=== PATIENT | female | born 1965 | race African-American/Black ===

== ENCOUNTER 2016-03-15 03:41 | Observation (INO) | payer SELFPAY ==
[2016-03-15] VITALS (14 sets, daily range): BP systolic 129–213; BP diastolic 72–110; PULSE 62–94; RESP 16–21; TEMP 96.7–98.7; O2SAT 98–100
[~2016-03-15] VITALS: Ht 162.6 cm; Wt 85.0 kg
[~2016-03-15 03:41] MED LIST: METO10TA PO; NAPR500 PO; ZOFR4TAB3 SL
[2016-03-15] MEDS: NITROGLYCERIN 0.4 MG SL 25 TABS/BTL SL SCH ×3 (04:13→04:29)
[2016-03-15] MEDS ORDERED: ASPIRIN 81 MG CHEW TAB PO ONE (04:15)
[2016-03-15] MEDS ORDERED: NITROGLYCERIN 2% OINT 1 GM PACKET TOP ONE (04:15)
[2016-03-15] MEDS ORDERED: SODIUM CHLORIDE 0.9% FLUSH 5 ML FLUSH IVF PRN ×2 (04:15→06:00)
[2016-03-15 04:24] LABS: AUTOMATED NEUTROPHIL # 3.7 TH/MM3 (1.8-7.7); BASOPHIL # 0.1 TH/MM3 (0-0.2); BASOPHIL % 1.1 % (0.0-2.0); EOSINOPHIL # 0.1 TH/MM3 (0-0.4); EOSINOPHIL % 1.1 % (0.0-4.0); HEMATOCRIT 31.1 % (35.0-46.0); LYMPH % 24.1 % (9.0-44.0); LYMPHOCYTE # 1.4 TH/MM3 (1.0-4.8); MEAN CELL VOLUME 58.9 FL (80.0-100.0); MEAN CORPUSCULAR HEMOGLOBIN 18.1 PG (27.0-34.0); MEAN CORPUSCULAR HGB CONC 30.7 % (32.0-36.0); MONO % 10.2 % (0.0-8.0); NEUT % 63.5 % (16.0-70.0); PLATELET COUNT 272 TH/MM3 (150-450); RED BLOOD COUNT 5.27 MIL/MM3 (4.00-5.30); RED CELL DISTRIBUTION WIDTH 21.5 % (11.6-17.2); WHITE BLOOD COUNT 5.8 TH/MM3 (4.0-11.0)
[2016-03-15 04:25] LABS: HEMO FLAGS AUTO DIFF
[2016-03-15 04:41] LABS: APTT (PATIENT) 24.3 SEC (24.3-30.1); PROTHROMBIN TIME - PATIENT 10.6 SEC (9.8-11.6)
--- NOTE | 2016-03-15 04:45 | RADRPT ---
EXAM DATE/TIME: 03/15/2016 04:04 [facility] COMPARISON: CHEST SINGLE AP, May 20, 2015, 19:00. INDICATIONS : Pt having chest pain. MEDICAL HISTORY : Hypertension. SURGICAL HISTORY : section. Tubal ligation. ENCOUNTER: Initial ACUITY: 1 day PAIN SCORE: 7/10 LOCATION: Bilateral chest FINDINGS: A single view of the chest demonstrates the lungs to be symmetrically aerated without evidence of mas s, infiltrate or effusion. Mild cardiomegaly. The cardiomediastinal contours are unremarkable. Mcintosh us structures are intact. CONCLUSION: No acute cardiopulmonary disease. Mild cardiomegaly. Myke Cox MD on March 15, 2016 at 4:43 Board Certified Radiologist. This report was verified electronically.
[2016-03-15 04:54] LABS: ACANTHOCYTES OCC (NORMAL); ANION GAP 9 MEQ/L (5-15); AST (GOT) 11 U/L (15-37); BICARBONATE 25.4 MEQ/L (21.0-32.0); BLOOD UREA NITROGEN 19 MG/DL (7-18); CHLORIDE 107 MEQ/L (98-107); GLOMERULAR FILTRATION RATE 101 ML/MIN (>89); OVALOCYTES 1+ (NORMAL); PLATELET ESTIMATE SMEAR NORMAL (NORMAL); PLATELET MORPHOLOGY NORMAL (NORMAL); POTASSIUM 4.3 MEQ/L (3.5-5.1); SODIUM (NA) 141 MEQ/L (136-145)
[2016-03-15 04:58] LABS: SCAN/DIFF AUTO DIFF CONFIRMED
[2016-03-15 04:59] LABS: ALKALINE PHOSPHATASE 90 U/L (45-117); ALT (GPT) 15 U/L (10-53); CREATINE KINASE 117 U/L (26-192); TOTAL BILIRUBIN ADULT 0.3 MG/DL (0.2-1.0)
[2016-03-15 05:11] LABS: CKMB 1.6 NG/ML (0.5-3.6)
--- NOTE | 2016-03-15 05:52 | RADRPT ---
EXAM DATE/TIME: 03/15/2016 04:55 [facility] COMPARISON: No previous studies available for comparison. INDICATIONS : Pt with pain and swelling to left hand. No known injury. MEDICAL HISTORY : None. SURGICAL HISTORY : None. ENCOUNTER: Initial ACUITY: 1 day PAIN SCORE: 6/10 LOCATION: Left hand FINDINGS: Three view examination of the left hand demonstrates soft tissue swelling without dislocation or frac ture. The carpal bones appear intact. The interphalangeal and metacarpophalangeal joints are intac t. Bony mineralization is normal. CONCLUSION: Soft tissue swelling without fracture. Myke Cox MD on March 15, 2016 at 5:50 Board Certified Radiologist. This report was verified electronically.
--- NOTE | 2016-03-15 05:59 | PD ---
HPI Chief Complaint: Chest Pain Time Seen by Provider: 03:55 Travel History International Travel<30 days: No Contact w/Intl Traveler<30days: No Traveled to known affect area: No History of Present Illness HPI The patient is 50 year old female who presents to the [facility] emergency department with a history of chest pain that she reports began just prior to arriving in the emergency department. The patient reports that the chest pain is in the center of her chest. She reports that it is a pressure sensation. She reports it has been associated with shortness of breath, nausea, no vomiting. She denies having any radiation of the pain. She denies having any diaphoresis. The patient denies having any prior history of cardiac disease. She reports that she last had a stress test on a couple of years ago. The patient reports that she does have a history of a heart murmur and hypertension , however she has not had a primary care physician recently and has not been on blood pressure medication recently. The patient also incidentally reports that she's had a two-week history of left thumb pain, that yesterday began to spread across the dorsum of her hand mainly involving the distal metacarpal joints. The patient reports that she has some redness and swelling associated with this. She denies having any trauma to the area. She reports that she does have a history of gout, however previously that involved her foot. She denies having any open wounds to her hand. The patient on review of systems reports that she did have vomiting 2 days ago. The patient denies any recent fevers, cough, congestion, neck pain, chest pain, shortness of breath, abdominal pain, diarrhea, urinary symptoms, or neurologic symptoms. [facility] Past Medical History Narrative Medical The patient's past medical history is significant for a heart murmur, history of hypertension, history of sciatica, history of low back pain, history of gout. Hx Anticoagulant Therapy: No Heart Rhythm Problems: Yes (ENLARGED HEART,IRREGULAR) Cardiovascular Problems: Yes (HTN) Chemotherapy: No Cerebrovascular Accident: No Diabetes: No Diminished Hearing: No Hypertension: Yes Musculoskeletal: Yes (SCIATICA) Respiratory: No Immunizations Current: Yes Tetanus Vaccination: Unknown Influenza Vaccination: No ?: Not LMP: 2 days ago : 3 Para: 3 Tubal Ligation: Yes (1993) Past Surgical History Narrative Surgical The patient's past surgical history is significant for a times one, bilateral tubal ligation. Section: Yes (X 1) Hysterectomy: No Family History Family Myocardial Infarction: Yes Social History Alcohol Use: No Tobacco Use: No Substance Use: No Allergies-Medications (Allergen,Severity, Reaction): Coded Allergies: No Known Allergies (Verified , 03/15/16) Reported Meds & Prescriptions Reported Meds & Active Scripts Active No Active Prescriptions or Reported Medications Review of Systems Except as stated in HPI: all other systems reviewed are Neg General / Constitutional: No: Fever Eyes: No: Visual changes HENT: No: Headaches Cardiovascular: Positive: Chest Pain or Discomfort, Dyspnea on exertion Respiratory: Positive: Shortness of Breath, No: Cough Gastrointestinal: Positive: Nausea, Vomiting, No: Abdominal Pain Genitourinary: No: Dysuria Musculoskeletal: Positive: Arthralgias, Limited ROM, Edema, Pain Skin: No Rash Neurologic: No: Weakness Psychiatric: No: Depression Endocrine: No: Polydipsia Hematologic/Lymphatic: No: Easy Bruising Physical Exam Narrative General: The patient is a well-developed well-nourished female in no acute distress.. Head and Neck exam: Head is normocephalic atraumatic. Eyes: Pupils are equal round and reactive to light. Nose: Midline septum with pink mucous membranes Mouth: Dentition unremarkable. Moist mucus membranes. Posterior oropharynx is not erythematous. No tonsillar hypertrophy. Uvula midline. Airway patent. Neck: No palpable lymphadenopathy. No nuchal rigidity. No thyromegaly. Cardiovascular: Regular rate and rhythm without murmurs, gallops, or rubs. No pulse deficit to the extremities and simultaneous auscultation and palpation of her radial artery. Lungs: Clear to auscultation bilaterally. No wheezes, rhonchi, or rales. Abdomen: Soft, without tenderness to palpation in all 4 quadrants of the abdomen. No guarding, rebound, or rigidity. Normal bowel sounds are audible. No tenderness on palpation of McBurney's point. Extremities: No clubbing, cyanosis, or edema, except an area of interest, the left hand. The patient on examination the left hand has tenderness on palpation along the dorsum of the hand overlying the MCP joints. There is slight edema and erythema noted. There are no open wounds. The patient has intact sensation over all fingertips. The patient has less than 3 second capillary refill. The patient has no other swelling of the arm. 2+ pulses in all 4 extremities. No calf tenderness on palpation. Back: No spinous process tenderness to palpation. No costovertebral angle tenderness to palpation. Neurologic Exam: Grossly nonfocal. Skin Exam: No rash noted. Intact skin that is warm and dry. Data Data Last Documented VS Vital Signs Date Time Temp Pulse Resp B/P Pulse Ox O2 Delivery O2 Flow Rate FiO2 03/15/16 05:23 73 16 141/80 98 Room Air 03/15/16 03:45 97.9 Orders Electrocardiogram (03/15/16 04:02) B-Type Natriuretic Peptide (03/15/16 04:02) Ckmb (Isoenzyme) Profile (03/15/16 04:02) Complete Blood Count With Diff (03/15/16 04:02) Comprehensive Metabolic Panel (03/15/16 04:02) Magnesium (Mg) (03/15/16 04:02) Prothrombin Time / Inr (Pt) (03/15/16 04:02) Act Partial Throm Time (Ptt) (03/15/16 04:02) Troponin I (03/15/16 04:02) Lipase (03/15/16 04:02) Chest, Single Ap (03/15/16 04:02) Ecg Monitoring (03/15/16 04:02) Bilateral Bp Monitoring (03/15/16 04:02) Iv Access Insert/Monitor (03/15/16 04:02) Oximetry (03/15/16 04:02) Oxygen Administration (03/15/16 04:02) Aspirin Chew (Aspirin Chew) (03/15/16 04:15) Nitroglycerin 2% Oint (Nitroglycerin 2% (03/15/16 04:15) Sodium Chloride 0.9% Flush (Ns Flush) (03/15/16 04:15) Nitroglycerin Sl (Nitrostat Sl) (03/15/16 04:15) Ed Urine Pregnancytest Poc (03/15/16 04:02) Uric Acid (03/15/16 04:50) Hand, Complete ([id number]) (03/15/16 04:50) Ice/Cold Pack (03/15/16 04:50) CKMB (03/15/16 04:05) CKMB% (03/15/16 04:05) Labs Laboratory Tests Test 03/15/16 04:05 White Blood Count 5.8 TH/MM3 Red Blood Count 5.27 MIL/MM3 Hemoglobin 9.5 GM/DL Hematocrit 31.1 % Mean Corpuscular Volume 58.9 FL Mean Corpuscular Hemoglobin 18.1 PG Mean Corpuscular Hemoglobin 30.7 % Concent Red Cell Distribution Width 21.5 % Platelet Count 272 TH/MM3 Mean Platelet Volume 9.0 FL Neutrophils (%) (Auto) 63.5 % Lymphocytes (%) (Auto) 24.1 % Monocytes (%) (Auto) 10.2 % Eosinophils (%) (Auto) 1.1 % Basophils (%) (Auto) 1.1 % Neutrophils # (Auto) 3.7 TH/MM3 Lymphocytes # (Auto) 1.4 TH/MM3 Monocytes # (Auto) 0.6 TH/MM3 Eosinophils # (Auto) 0.1 TH/MM3 Basophils # (Auto) 0.1 TH/MM3 CBC Comment AUTO DIFF Differential Comment AUTO DIFF CONFIRMED Platelet Estimate NORMAL Platelet Morphology Comment NORMAL Ovalocytes 1+ Acanthocytes OCC Prothrombin Time 10.6 SEC Prothromb Time International 1.0 RATIO Ratio Activated Partial 24.3 SEC Thromboplast Time Sodium Level 141 MEQ/L Potassium Level 4.3 MEQ/L Chloride Level 107 MEQ/L Carbon Dioxide Level 25.4 MEQ/L Anion Gap 9 MEQ/L Blood Urea Nitrogen 19 MG/DL Creatinine 0.74 MG/DL Estimat Glomerular Filtration 101 ML/MIN Rate Random Glucose 90 MG/DL Calcium Level 8.4 MG/DL Magnesium Level 2.0 MG/DL Total Bilirubin 0.3 MG/DL Aspartate Amino Transf 11 U/L (AST/SGOT) Alanine Aminotransferase 15 U/L (ALT/SGPT) Alkaline Phosphatase 90 U/L Total Creatine Kinase 117 U/L Creatine Kinase MB 1.6 NG/ML Troponin I LESS THAN 0.02 NG/ML B-Type Natriuretic Peptide 52 PG/ML Total Protein 7.1 GM/DL Albumin 3.4 GM/DL Lipase 182 U/L MDM Medical Decision Making Medical Screen Exam Complete: Yes Emergency Medical Condition: Yes Medical Record Reviewed: Yes Interpretation(s) Last Impressions Chest X-Ray 03/15/16 0402 Signed Impressions: Service Date/Time: Tuesday, March 15, 2016 04:04 - CONCLUSION: No acute cardiopulmonary disease. Mild cardiomegaly. Myke Cox MD Differential Diagnosis Acute coronary syndrome, versus new-onset congestive heart failure, versus acid reflux, versus pleurisy, versus gout, versus costochondritis, versus arthritis, versus cellulitis Narrative Course During the course of the patients emergency department visit, the patients history, examination, and differential diagnosis were reviewed with the patient. The patient had IV access obtained and blood work sent for analysis. The patient was placed on a animal groomer with oximetry and blood pressure monitoring. An EKG was done on arrival. The patient's EKG shows a sinus rhythm heart rate of 82, borderline left axis deviation, possible left ventricular hypertrophy, nonspecific T-wave abnormalities, no evidence of ST segment elevation. T waves are inverted in V1. The patient was provided aspirin 162 mg by mouth 1, nitroglycerin sublingual 1 , nitroglycerin 1 inch to the chest wall. The patient reports that the nitroglycerin did help with her chest pain. The patient's left hand pain is suspicious for gout exacerbation. She was given Toradol 15 mg IV times one. A uric acid level was added to her labs. The patients laboratory studies were reviewed and remarkable for a CBC that shows a white count of 5.8, hemoglobin 9.5 which is stable compared to previously the patient does have a history of anemia from reviewing her record, MCV 58.9, platelets 272 with 10.2 monocytes. CMP is remarkable for BUN of 19, calcium 8.4, uric acid 4.3, AST 11, initial set of cardiac enzymes are negative , BNP 52, lipase 182, PT PTT unremarkable. Radiology studies were reviewed and remarkable for a chest x-ray that shows no acute cardiopulmonary abnormality, mild cardiomegaly. Left hand x-ray reveals soft tissue swelling without dislocation or fracture. Carpal bones appear intact, bony mineralization is normal. The patient's results were discussed with her. The patient is agreeable with the plan to proceed with admission to the chest pain center for rule out serial cardiac enzyme protocol. The patients results were discussed with the patient, including the plan of care. I explained that further testing and/ or monitoring is indicated based on the patients history, examination, and/ or laboratory findings. Therefore, I recommended admission for additional evaluation. The patient expressed understanding and was agreeable with this plan. The patient was admitted to the hospital in stable condition and sent to a bed under the care of the chest pain center. Diagnosis Primary Impression: Chest pain, rule out acute myocardial infarction Additional Impressions: Chronic anemia Left hand pain Admitting Information Admitting Physician Requests: Observation Scripts No Active Prescriptions or Reported Meds Macarena Monique MD Mar 15, 2016 05:59
[2016-03-15] MEDS ORDERED: KETOROLAC TROMETHAMINE 30 MG/ML (IVP) VIAL IV PUSH ONE (06:00)
[2016-03-15] MEDS ORDERED: SODIUM CHLORID 0.9% 500 ML INJ 500 ML IV ONE (06:00)
[2016-03-15] MEDS: NITROGLYCERIN 2% OINT 1 GM PACKET TOP SCH ×3 (06:09→19:10)
[2016-03-15] MEDS: ACETAMINOPHEN/HYDROcodone 325 MG/7.5 MG TAB PO PRN ×2 (07:54→12:08)
[2016-03-15 08:13] LABS: CREATINE KINASE 235 U/L (26-192)
[2016-03-15 08:27] LABS: CKMB 1.4 NG/ML (0.5-3.6)
[2016-03-15] MEDS ORDERED: amLODIPine BESYLATE 5 MG TAB PO ONE (08:45)
[2016-03-15] MEDS ORDERED: REGADENOSON INJ 0.4 MG/5 ML SYR ONE (10:00)
--- NOTE | 2016-03-15 10:05 | MH ---
cc: SAMEER GOLDMAN MD DATE OF ADMISSION: 03/15/2016 DATE OF 1965 CHIEF COMPLAINT Chest pain. HISTORY OF PRESENT ILLNESS This is a 50-year-old patient who presents to the emergency room with an onset of chest discomfort located under her left breast at approximately 2:00 a.m. this morning. The patient was not awoken from sleep. Characteristic of a sharp pressure. There was no radiation. Duration has been constant. Associated symptoms include - it hurts to take a deep breath and sometimes with movement. No nausea or diaphoresis or shortness of breath. No precipitating factors. No known factors. Has had similar pain in the past has had cardiac workup and states, "They never find anything wrong." No known relieving factors. Currently she does not have a primary care provider. She was following with Dr. Ames in 2012. PAST MEDICAL HISTORY 1. Hypertension. She is not on any medications. 2. Anemia. She is not taking her iron tablet; she cannot tolerate them. PAST SURGICAL HISTORY Tubal ligation. . FAMILY HISTORY Noncontributory for any early onset cardiovascular disease. Mother is noted to have a heart attack in her mid-60s. She is still alive and well. 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 She has a lifelong nonsmoker. Denies any illegal drug use. No alcohol use. No known diabetes or hyperlipidemia. Has been diagnosed with hypertension in the past, although she is not convinced that she does have high blood pressure. PAST CARDIAC TESTING On 01/19/2013 she had a chemical stress test, negative for ischemia and ejection fraction of 68% and good wall motion. She has no allergies. MEDICATIONS She is currently not taking any medications or supplements. REVIEW OF SYSTEMS General: States she had been in a general state of health with no recent illness, fevers, chills, night sweats, change in appetite. HEENT: No headaches or visual changes. Cardiovascular: As stated above. No palpitations, intermittent leg pain or dizziness. Respiratory: No cough, recent upper respiratory infection shortness of breath, wheeze, asthma. Abdomen: No bowel changes, diarrhea, constipation pain distension, blood in the stool or dark stool. Has a some intermittent nausea; this has been going on for the past year and is unchanged. No hemoptysis. : No dysuria, urgency, frequency, hematuria or history of kidney stones. Extremities: No lower leg edema or pain. Musculoskeletal: No change in ROM. Reports discomfort of her left hand. Believes she has carpal tunnel and has been wearing a brace to the left hand and no trauma to this area that she is aware of. Neuro: No difficulty with balance, motor or sensory deficits. Psych: No anxiety or depression. PHYSICAL EXAMINATION Vital Signs: Temperature 97.9, pulse 94, blood pressure on admission 213/101, respiratory rate 16. Pulse oximetry 98% on room air. Blood pressure now 140/72. General: She is alert, well-nourished, well-developed, in no acute distress, obese, pleasant -Vincentian female. Head: Normocephalic, atraumatic. Eyes: Sclerae clear. Pupils are equal and round. Conjunctivae without injection. Neck: Supple. No masses. Trachea is midline. Cardiovascular: She has regular rate and rhythm with a grade 2/6 systolic murmur, no rub or gallop. Respiratory: Clear lungs throughout bilaterally with no crackles, wheeze or rhonchi. She is nonlabored, symmetrical chest rise. Abdomen: Soft, obese, nontender, nondistended. Positive bowel tones. No masses. Extremities: Positive pulses +2 x4. No dependent edema. Musculoskeletal: Normal tone x 4. She is nontender in her chest wall and there are no obvious deformities. Neurologic: CN II-XII were grossly intact. Motor strength 5/5. Her gait was within normal limits. Psych: Alert and oriented x 3. Has a pleasant affect, appropriate mood, insight and judgment. LABORATORY CBC has a hemoglobin of 9.5, hematocrit 31.1, MCV of 58.9, MCH of 18.1 and MCHC of 30.7, otherwise unremarkable. Chemistry - Unremarkable. Two sets of cardiac enzymes are negative. Coagulation - Unremarkable. X-RAYS Chest x-ray read by radiologist has a conclusion of no acute cardiopulmonary disease. Mild cardiomegaly. Left hand x-ray was completed and its conclusion was of soft tissue swelling without fracture. EKGs First EKG shows a normal sinus rhythm with no ST or T-segment changes and a left axis. Second EKG shows a normal sinus rhythm and T-wave abnormality in V4 through V6 and also in her inferior leads. At this time her blood pressure is noted to be 179/84. ASSESSMENT/PLAN 1. Chest pain. The patient has been admitted to the chest pain center. She was ruled out with two sets of EKGs, cardiac enzymes and seen and evaluated by Dr. Sameer Goldman. She will undergo a chemical stress test this morning that has been discussed with the patient she is agreeable to this plan. If this were to be unremarkable, she will be later discharged this afternoon. 2. Hypertension. Amlodipine 5 mg x 1 dose. I have encouraged her to keep a blood pressure log and the importance of tight blood pressure control and medication adherence and to follow with Dr. Ames upon discharge. 3. Anemia. Also discussed with her the importance of taking her iron tablets, following up with a primary care provider. Dictated by: SHERIN Leiva MD TIM Sol/SSB /9:28 AM /10:04 AM
[2016-03-15] MEDS ORDERED: cloNIDine HCL 0.1 MG TAB PO PRN (10:30)
[2016-03-15] MEDS: SODIUM CHLORIDE 0.9% FLUSH 5 ML FLUSH IVF SCH ×2 (11:00→20:47)
[2016-03-15] MEDS: PANTOPRAZOLE SOD 40 MG DELAYED RELEASE TAB PO SCH (11:16)
--- NOTE | 2016-03-15 11:40 | RADRPT ---
EXAM DATE/TIME: 03/15/2016 09:33 [facility] COMPARISON: MYOCARDIAL PERF PHARM SPECT, GATED W/EF, January 19, 2013, 10:44. INDICATIONS : Pressure like chest pain in center of the chest Coronary artery disease. DOSE: 25.4 mCi Tc99m Myoview at stress. 8.2 mCi Tc99m Myoview at rest. 0.4 mg Lexiscan STRESS SYMPTOMS: Flushed. EJECTION FRACTION: 67% MEDICAL HISTORY: Hypertension. SURGICAL HISTORY: Tubal ligation. section. ENCOUNTER: Initial ACUITY: 1 day PAIN SCALE: 2/10 LOCATION: Chest pain TECHNIQUE: The patient underwent pharmacologic stress with infusion of prescribed dose. Continuous ECG tracing was monitored during stress. Gated SPECT imaging was performed after stress and conventional SPECT i maging was performed at rest. The examination was performed on a SPECT/CT scanner, both attenuation and non-corrected datasets were reviewed. FINDINGS: The gated Cine loop images demonstrate no focal wall motion abnormality. The left ventricular ejecti on fraction is calculated at 67%. The cardiac SPECT stress and rest images demonstrate a possible reversible defect involving the later al wall suggesting ischemia in the LCX distribution. Clinical correlation is recommended. No fixed defect i s noted to suggest infarct. CONCLUSION: 1. Possible reversible defect involving the lateral wall suggesting LCX ischemia. Clinical correlat ion is recommended. 2. No fixed defect to suggest infarct. 3. No focal wall motion abnormality. Left ventricular ejection fraction is calculated at 67%. RISK CATEGORY: Intermediate risk (1-3% annual mortality rate). Antoni Bailey MD on March 15, 2016 at 11:17 Board Certified Radiologist. This report was verified electronically.
[2016-03-15] MEDS: CARVEDILOL 6.25 MG TAB PO SCH ×2 (14:20→20:47)
[2016-03-15] MEDS ORDERED: ONDANSETRON HCL 4 MG/2 ML VIAL IV PUSH PRN (14:30)
[2016-03-15] MEDS ORDERED: NITROGLYCERIN 0.4 MG SL 25 TABS/BTL SL PRN (15:00)
--- NOTE | 2016-03-15 15:09 | MB ---
cc: YUNG WALTON M.D. DATE OF CONSULTATION: 03/15/2016 REASON FOR CONSULTATION Evaluation of abnormal nuclear stress test and chest pain. HISTORY OF PRESENT ILLNESS This is a 50-year-old -[place] female who does not get regular health care follow-up. She comes in extremely hypertensive. Apparently she has been told she had elevated blood pressures in the past but she thought it was due to pain. She was seen at the [facility] clinic in the past but has not been there for quite a long time. She really said her major problem was pain in the left hand with some soreness and swelling in her left arm and hand. On the way to the hospital she also described some pain in her chest as a pressing-type feeling that she has had intermittently. She has it when she throws up. She says she has been throwing up for the three days this week and she also threw up last week. She cannot tell me why she has been throwing up. She has been here before and has prior records including a previous nuclear test which was normal. This was one was read as possible circumflex ischemia. PAST MEDICAL HISTORY 1. Hypertension. 2. Anemia. PAST SURGICAL HISTORY 1. Tubal ligation. 2. . FAMILY HISTORY Mother apparently had a heart attack in her 60s. 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 MEDICATIONS Medications prior to admission are none. Here she has received one dose of amlodipine 5 mg. REVIEW OF SYSTEMS Notable for somewhat heavy menstrual periods, otherwise unremarkable. PHYSICAL EXAMINATION GENERAL: A well-developed, well-nourished female in no acute distress. VITAL SIGNS: She has had blood pressures of 213/101 at 3:45 a.m., 200/110 at 12 noon. Her last blood pressure was 157/97. HEENT: Exam is unremarkable. NECK: No JVD. No bruits. CHEST: Clear to auscultation. CARDIAC: S1, S2, regular rate and rhythm with a grade 2/6 systolic ejection murmur. ABDOMEN: Soft. No masses or organomegaly. EXTREMITIES: No clubbing or cyanosis. Pulses are intact. EKG DATA EKG shows sinus rhythm with LVH with repolarization abnormality. The repolarization abnormality was not present on the first tracing, cannot exclude ischemia. LABORATORY DATA Her lab work includes a hematocrit of 31.1 with an MCV depressed at 58.9 and RDW elevated 21.5. Her troponins are negative. Creatinine is 0.74. IMAGING DATA Hand x-ray did not show any bony abnormalities. Chest x-ray shows showed mild cardiomegaly. Nuclear stress test showed possible reversible defect involving the lateral wall suggesting circumflex ischemia. IMPRESSION A 50-year-old female, probably with longstanding hypertension, very poorly controlled with extremely high blood pressure readings. This could account for some of her chest pain. There is no evidence of infarction. Stress test indicates possible circumflex ischemia. There is also a profound microcytic anemia. RECOMMENDATIONS 1. Evaluate her anemia. I am checking iron levels and I think she probably needs a GI consult and an upper endoscopy. 2. Treat her hypertension with carvedilol and continue amlodipine at this point. 3. Depending on how she does on medications for hypertension she might be a candidate for heart cath later but not at this time. 4. Further therapy to be determined. MD AFUA Worley/NORMA /1:48 PM /2:53 PM
[2016-03-15] MEDS ORDERED: ENALAPRILAT 1.25 MG/ML VIAL IV PRN (16:00)
[2016-03-15] MEDS ORDERED: hydrALAZINE HCL 20 MG/ML VIAL IV PRN (16:00)
--- NOTE | 2016-03-15 16:12 | EC ---
Study Study Date:03/15/2016 STUDY CONCLUSIONS SUMMARY - Left ventricle: The cavity size was normal. Wall thickness was increased in a pattern of moderate LVH. Systolic function was vigorous. The estimated ejection fraction was in the range of 65% to 70%. Wall motion was normal; there were no regional wall motion abnormalities. - Left atrium: The atrium was moderately dilated. - Tricuspid valve: Mild regurgitation. - Pulmonic valve: Mild regurgitation. - Pulmonary arteries: Systolic pressure was mildly increased. PA peak pressure: 42mm Hg (S). If LV function is below 40, please consider prescribing an ACEI or ARB or document rationale for non-use. PROCEDURE DATA STUDY STATUS: Elective. Procedure: Transthoracic echocardiography. Image quality was good. Scanning was performed from the parasternal, apical, and subcostal acoustic windows. Study completion: The patient tolerated the procedure well. Transthoracic echocardiography. M-mode, complete 2D, complete spectral Doppler, and color Doppler. Patient status: Inpatient. CARDIAC ANATOMY LEFT VENTRICLE: The cavity size was normal. Wall thickness was increased in a pattern of moderate LVH. Systolic function was vigorous. The estimated ejection fraction was in the range of 65% to 70%. Wall motion was normal; there were no regional wall motion abnormalities. AORTIC VALVE: Trileaflet; normal thickness leaflets. Doppler: Transvalvular velocity was within the normal range. There was no stenosis. No regurgitation. AORTA: Aortic root: The aortic root was normal in size. MITRAL VALVE: Structurally normal valve. Doppler: Transvalvular velocity was within the normal range. There was no evidence for stenosis. No regurgitation. LEFT ATRIUM: The atrium was moderately dilated. RIGHT VENTRICLE: The cavity size was normal. Wall thickness was normal. PULMONIC VALVE: Doppler: Transvalvular velocity was within the normal range. There was no evidence for stenosis. Mild regurgitation. TRICUSPID VALVE: Structurally normal valve. Doppler: Transvalvular velocity was within the normal range. Mild regurgitation. PULMONARY ARTERY: The main pulmonary artery was normal-sized. Systolic pressure was mildly increased. RIGHT ATRIUM: The atrium was normal in size. PERICARDIUM: There was no pericardial effusion. SYSTEMIC VEINS: Inferior vena cava: The vessel was normal in size. BASIC MEASUREMENTS ADULT Normal Left ventricle LV internal dimension, ED, chordal level, 43.3 mm 43-52 PLAX LV internal dimension, ES, chordal level, 28.1 mm 23-38 PLAX Fractional shortening, chordal level, PLAX 35 % >29 LV posterior wall thickness, ED 10.7 mm IVS/LVPW ratio, ED *1.41 <1.3 Ventricular septum Septal thickness, ED 15.1 mm Aortic valve Leaflet separation 17 mm 15-26 Right ventricle RV internal dimension, ED, PLAX 32.8 mm 19-38 BASIC MEASUREMENTS ADULT Normal Aortic valve Leaflet separation 17 mm 15-26 Aorta Root diameter, ED 28 mm 20-37 Left atrium Anterior-posterior dimension, ES *46 mm 19-40 LA/aortic root ratio 1.64 DOPPLER MEASUREMENTS ADULT Normal Main pulmonary artery Pressure, S *42 mm Hg =30 Tricuspid valve Regurgitant peak velocity 284 cm/s Peak RV-RA gradient, S 32 mm Hg Systemic veins Estimated CVP 10 mm Hg Right ventricle RV pressure, S *42 mm Hg <30 LEGEND: Mean values are shown as u=mean value. Asterisk (*) cope values outside specified normal range. Prepared and signed by Geovani Monique [id number]
[2016-03-15 16:23] LABS: FERRITIN 6 NG/ML (8-252); TRANSFERRIN IRON PROFILE 349 MG/DL (200-360)
[2016-03-15 21:07] LABS: MEAN CORPUSCULAR HGB CONC 29.8 % (32.0-36.0)
[2016-03-16] VITALS (9 sets, daily range): BP systolic 128–142; BP diastolic 72–78; PULSE 58–87; RESP 16–19; TEMP 97–98.9; O2SAT 97–100
[2016-03-16] MEDS: NITROGLYCERIN 2% OINT 1 GM PACKET TOP SCH ×4 (01:34→19:33)
[2016-03-16 05:48] LABS: AUTOMATED NEUTROPHIL # 3.7 TH/MM3 (1.8-7.7); BASOPHIL % 0.8 % (0.0-2.0); EOSINOPHIL # 0.1 TH/MM3 (0-0.4); EOSINOPHIL % 1.5 % (0.0-4.0); HEMATOCRIT 29.6 % (35.0-46.0); LYMPH % 20.3 % (9.0-44.0); LYMPHOCYTE # 1.1 TH/MM3 (1.0-4.8); MEAN CELL VOLUME 59.3 FL (80.0-100.0); MEAN CORPUSCULAR HEMOGLOBIN 17.6 PG (27.0-34.0); MONO % 8.7 % (0.0-8.0); NEUT % 68.7 % (16.0-70.0); PLATELET COUNT 240 TH/MM3 (150-450); WHITE BLOOD COUNT 5.4 TH/MM3 (4.0-11.0)
[2016-03-16 05:51] LABS: HEMO FLAGS AUTO DIFF
[2016-03-16 06:45] LABS: SCAN/DIFF AUTO DIFF CONFIRMED
[2016-03-16 06:46] LABS: KERATOCYTES OCC (NORMAL); OVALOCYTES 1+ (NORMAL); PLATELET ESTIMATE SMEAR NORMAL (NORMAL); PLATELET MORPHOLOGY NORMAL (NORMAL); TEARDROP RBCS 1+ (NORMAL)
--- NOTE | 2016-03-16 08:35 | EKG ---
Date Performed: 03/15/2016 Time Performed: 07:10:32 PTAGE: 50 years EKG: Sinus rhythm MINIMAL VOLTAGE CRITERIA FOR LVH, CONSIDER NORMAL VARIANT MODERATE T-WAVE ABNORMALITY, CONSIDER LATE RAL ISCHEMIA ABNORMAL ECG PREVIOUS TRACING : 03/15/2016 03.54 Since previous tracing, T wave changes are new DOCTOR: Sameer Swanson Interpretating Date/Time 03/16/2016 08:33:58
--- NOTE | 2016-03-16 08:36 | EKG ---
Date Performed: 03/15/2016 Time Performed: 03:54:57 PTAGE: 50 years EKG: Sinus rhythm POSSIBLE LEFT ATRIAL ENLARGEMENT BORDERLINE LEFT AXIS DEVIATION POSSIBLE LEFT VENTRICULAR HYPERTROPH Y NONSPECIFIC T-WAVE ABNORMALITY ABNORMAL ECG PREVIOUS TRACING : 05/20/2015 18.58 Since previous tracing, no significant change noted DOCTOR: Sameer Swanson Interpretating Date/Time 03/16/2016 08:34:18
--- NOTE | 2016-03-16 08:37 | TR ---
Date Performed: 03/15/2016 Time Performed: 10:06:13 DOCTOR: Sameer Swanson DRUG LIST: CLINICAL HISTORY: CHEST PAIN REASON FOR TEST: CHEST PAIN REASON FOR ENDING: OBSERVATION: CONCLUSION: Lexiscan stress test was performed under standard four minute protocol. Radionuclid e was injected one minute prior to ending the test. No electrocardiographic abormalities were present to suggest ischemia. Nuclear imaging and interpretation are pending. COMMENTS:
[2016-03-16] MEDS: SODIUM CHLORIDE 0.9% FLUSH 5 ML FLUSH IVF SCH ×2 (09:00→20:22)
--- NOTE | 2016-03-16 09:31 | HHI.PR ---
Subjective Remarks Follow up for chest pain, anemia. The patient reports no further chest pains overnight. Denies any shortness of breath. She reports recent menstrual cycle started 6 days ago, had a few days of heavy bleeding with clots, now bleeding stopped x2days. She states her periods are usually fairly normal, lasts 4 days, but can be heavy at times. Denies NSAID use. Denies abdominal pain. The patient reports she stopped taking iron supplement because she didn't like the way it made her feel, with nausea. She agrees to restarting iron. 1035hrs: After initial evaluation today, the patient later reported chest pain to the nurse. Cardiac enzymes/EKG ordered. Objective Vitals Vital Signs Date Time Temp Pulse Resp B/P Pulse Ox O2 Delivery O2 Flow Rate FiO2 03/16/16 08:30 97.0 65 16 139/73 97 03/16/16 03:55 98.9 74 18 130/78 98 03/16/16 00:51 98.8 87 18 128/76 98 03/16/16 00:00 63 03/15/16 20:06 63 03/15/16 19:14 98.0 62 21 129/76 100 03/15/16 16:35 96.7 71 16 146/78 100 03/15/16 16:00 74 03/15/16 13:15 157/97 03/15/16 12:34 98.7 79 16 100 03/15/16 12:00 200/110 I/O 03/15/16 03/15/16 03/15/16 03/16/16 03/16/16 03/16/16 07:00 15:00 23:00 07:00 15:00 23:00 Intake Total 0 ml Balance 0 ml Intake Oral 0 ml # Voids 3 3 # Bowel Movements 0 1 Result Diagram: 03/16/16 0512 03/15/16 0405 Imaging Last Impressions Hand X-Ray 03/15/16 0450 Signed Impressions: Service Date/Time: Tuesday, March 15, 2016 04:55 - CONCLUSION: Soft tissue swelling without fracture. Myke Cox MD Chest X-Ray 03/15/16 0402 Signed Impressions: Service Date/Time: Tuesday, March 15, 2016 04:04 - CONCLUSION: No acute cardiopulmonary disease. Mild cardiomegaly. Myke Cox MD Myocardial Perfusion Scan Nuc Med 03/15/16 0000 Signed Impressions: Service Date/Time: Tuesday, March 15, 2016 09:33 - CONCLUSION: 1. Possible reversible defect involving the lateral wall suggesting LCX ischemia. Clinical correlation is recommended. 2. No fixed defect to suggest infarct. 3. No focal wall motion abnormality. Left ventricular ejection fraction is calculated at 67%%. RISK CATEGORY: Intermediate risk (1-3%% annual mortality rate) . Antoni Bailey MD Objective Remarks GENERAL: Well-nourished, well-developed middle aged female patient in [employer]. SKIN: Warm and dry. No rash. HEAD: Normocephalic. Atraumatic. EYES: Pupils equal and round. No scleral icterus. No injection or drainage. ENT: No nasal bleeding or discharge. Mucous membranes pink and moist. NECK: Supple. Trachea midline. CARDIOVASCULAR: Regular rate and rhythm. S1, S2 noted. No murmur appreciated. RESPIRATORY: No accessory muscle use. Clear to auscultation. Breath sounds equal bilaterally. GASTROINTESTINAL: Abdomen soft, non-tender, nondistended. Normoactive bowel sounds x4. MUSCULOSKELETAL: No obvious deformities. Extremities without clubbing, cyanosis , or edema. NEUROLOGICAL: Awake and alert. No obvious cranial nerve deficits. Motor grossly within normal limits. Normal speech. PSYCHIATRIC: Appropriate mood and affect; insight and judgment normal. Medications and IVs Current Medications Medications (Trade) Dose Ordered Sig/Jerman Route Start Time Stop Time Status Last Admin (NS Flush) 2 ml UNSCH PRN IVF 03/15/16 06:00 (NS Flush) 2 ml BID IVF 03/15/16 09:00 03/15/16 20:47 ([place] 7.5-325 Mg) 1 tab Q4H PRN PO 03/15/16 06:00 03/15/16 12:08 (Protonix) 40 mg DAILY PO 03/15/16 09:00 03/16/16 10:30 (Nitroglycerin 2% Oint) 1 inch Q6HR TOP 03/15/16 06:00 03/16/16 06:34 (Catapres) 0.1 mg Q6H PRN PO 03/15/16 10:30 03/15/16 12:08 (Norvasc) 5 mg DAILY PO 03/16/16 09:00 03/16/16 10:30 (Coreg) 6.25 mg Q12HR PO 03/15/16 14:00 03/16/16 10:30 (Zofran Inj) 4 mg Q6HR PRN IV PUSH 03/15/16 14:30 (Aspirin) 325 mg DAILY PO 03/16/16 09:00 03/16/16 10:30 (Nitrostat Sl) 0.4 mg Q5M PRN SL 03/15/16 15:00 03/16/16 10:40 (Vasotec Inj) 1.25 mg Q6H PRN IV 03/15/16 16:00 (Apresoline Inj) 10 mg Q6H PRN IV 03/15/16 16:00 (Ferrous Sulfate) 325 mg BID@,17 PO 03/16/16 12:00 Urinary Catheter: No Vascular Central Line Catheter: No A/P Assessment and Plan 50-year-old female with: Chest Pain: Initially admitted to [facility], ACS ruled out with negative serial cardiac enzymes x2 and EKG without acute ST changes. Nuclear stress test showed possible reversible defect involving lateral wall suggesting LCX ischemia; clinical correlation, EF 67%. Echo with EF 65-70%, with moderate LVH, mild TR, mild [place]. Patient transferred to hospitalists with cardiology consulted, seen by Dr. Monique, recommended medical management and GI consult for evaluation of anemia. Started on Aspirin, Norvasc, Coreg. Nitro prn. 1035hrs: Patient reports recurrent chest pains. Stat EKG obtained, reviewed by me, no acute ST/T changes. Check serial cardiac enzymes. SL Nitro. Microcytic Iron Deficiency Anemia: possibly due to recent menstrual bleeding however rule out GI etiology. Monitor H&H, currently Hgb 8.8. Stool hemoccult ordered. GI consulted. Started on ferrous sulfate bid with meals. Hypertension: Started on Coreg and Norvasc as above. BP better controlled. Monitor. DVT Prophylaxis: teds/SCDs Written by Ceeclia York, acting as scribe for Dr. Arreola on 03/16/16 at 09: 25. The documentation accurately reflects the work performed [id number] by me on at 0925 Cecelia York PA-C Mar 16, 2016 09:31 Carmelo Arreola MD Mar 16, 2016 13:39
--- NOTE | 2016-03-16 10:12 | PD.CARD.PN ---
Subjective Subjective Remarks Patient not in room on my rounds Objective Medications Current Medications Medications (Trade) Dose Ordered Sig/Jerman Route Start Time Stop Time Status Last Admin (NS Flush) 2 ml UNSCH PRN IVF 03/15/16 06:00 (NS Flush) 2 ml BID IVF 03/15/16 09:00 03/15/16 20:47 ([place] 7.5-325 Mg) 1 tab Q4H PRN PO 03/15/16 06:00 03/15/16 12:08 (Protonix) 40 mg DAILY PO 03/15/16 09:00 03/15/16 11:16 (Nitroglycerin 2% Oint) 1 inch Q6HR TOP 03/15/16 06:00 03/16/16 06:34 (Catapres) 0.1 mg Q6H PRN PO 03/15/16 10:30 03/15/16 12:08 (Norvasc) 5 mg DAILY PO 03/16/16 09:00 (Coreg) 6.25 mg Q12HR PO 03/15/16 14:00 03/15/16 20:47 (Zofran Inj) 4 mg Q6HR PRN IV PUSH 03/15/16 14:30 (Aspirin) 325 mg DAILY PO 03/16/16 09:00 (Nitrostat Sl) 0.4 mg Q5M PRN SL 03/15/16 15:00 (Vasotec Inj) 1.25 mg Q6H PRN IV 03/15/16 16:00 (Apresoline Inj) 10 mg Q6H PRN IV 03/15/16 16:00 (Ferrous Sulfate) 325 mg BID@, PO 03/16/16 12:00 Vital Signs / I&O Vital Signs Date Time Temp Pulse Resp B/P Pulse Ox O2 Delivery O2 Flow Rate FiO2 03/16/16 08:30 97.0 65 16 139/73 97 03/16/16 03:55 98.9 74 18 130/78 98 03/16/16 00:51 98.8 87 18 128/76 98 03/16/16 00:00 63 03/15/16 20:06 63 03/15/16 19:14 98.0 62 21 129/76 100 03/15/16 16:35 96.7 71 16 146/78 100 03/15/16 16:00 74 03/15/16 13:15 157/97 03/15/16 12:34 98.7 79 16 100 03/15/16 12:00 200/110 I/O 03/15/16 03/15/16 03/15/16 03/16/16 03/16/16 03/16/16 07:00 15:00 23:00 07:00 15:00 23:00 Intake Total 0 ml Balance 0 ml Intake Oral 0 ml # Voids 3 3 # Bowel Movements 0 1 Physical Exam Alert Chest Clear CV [id number] RRR echo moderate LVH Laboratory Laboratory Tests Test 03/16/16 05:12 White Blood Count 5.4 TH/MM3 Red Blood Count 5.00 MIL/MM3 Hemoglobin 8.8 GM/DL Hematocrit 29.6 % Mean Corpuscular Volume 59.3 FL Mean Corpuscular Hemoglobin 17.6 PG Mean Corpuscular Hemoglobin 29.8 % Concent Red Cell Distribution Width 22.0 % Platelet Count 240 TH/MM3 Mean Platelet Volume 8.6 FL Neutrophils (%) (Auto) 68.7 % Lymphocytes (%) (Auto) 20.3 % Monocytes (%) (Auto) 8.7 % Eosinophils (%) (Auto) 1.5 % Basophils (%) (Auto) 0.8 % Neutrophils # (Auto) 3.7 TH/MM3 Lymphocytes # (Auto) 1.1 TH/MM3 Monocytes # (Auto) 0.5 TH/MM3 Eosinophils # (Auto) 0.1 TH/MM3 Basophils # (Auto) 0.0 TH/MM3 CBC Comment AUTO DIFF Differential Comment AUTO DIFF CONFIRMED Platelet Estimate NORMAL Platelet Morphology Comment NORMAL Tear Drop Cells 1+ Ovalocytes 1+ Keratocytes OCC Assessment and Plan Problem List: (1) Iron deficiency anemia Assessment and Plan: Severe. Frequent vomiting. Needs GI consult and iron replacement (2) Hypertensive heart disease Assessment and Plan: LVH on echo. BP OK on meds (3) Chest pain, rule out acute myocardial infarction Assessment and Plan: Advise cont. medical therapy Geovani Monique MD Mar 16, 2016 10:12
[2016-03-16] MEDS: amLODIPine BESYLATE 5 MG TAB PO SCH (10:30)
[2016-03-16] MEDS: ASPIRIN 325 MG TAB PO SCH (10:30)
[2016-03-16] MEDS: CARVEDILOL 6.25 MG TAB PO SCH ×2 (10:30→20:22)
[2016-03-16] MEDS: PANTOPRAZOLE SOD 40 MG DELAYED RELEASE TAB PO SCH (10:30)
--- NOTE | 2016-03-16 10:38 | PD.CONS ---
HPI History of Present Illness This is a 50 year old female patient who came to the ER for evaluation of chest pain that began around 2am yesterday morning. She was evaluated with cardiology who felt that this was more GI in nature and recommended GI workup. She reports that she started having some pain in her left thumb on Tuesday and it was progressively worsening to the point that she could not lift anything and it was swollen. She came to the ER for evaluation. She reports that once she was pulling into the hospital, she started having chest pain. This was a throbbing pain in her substernal area with radiation to the left side of her chest. She denies any numbness, tingling, or shortness of breath. The pain subsided and she was evaluated by cardiology, who did not feel that this was cardiac in nature and recommended a GI workup. She reports that she did have some decreased appetite with nausea, vomiting, and abdominal pain last week. This lasted a few days and then subsided on its own. She did not take any meds for this. She denies any heartburn or reflux, bloating, constipation, diarrhea , melena, red blood in her stools. She denies any hx of PUD. She does not take any ibuprofen, but did take ASA the other day for her thumb pain. She has never had an endoscopy. (Preeti Painter) PFSH Past Medical History HTN Anemia Past Surgical History Tubal ligation (Preeti Painter) Coded Allergies: No Known Allergies (Verified , 03/15/16) Medications Allergies Coded Allergies Type Severity Reaction Last Updated Verified No Known Allergies 03/15/16 Yes Active Scripts Medications Dose Route/Sig Days Date Category No Active Prescriptions or Reported Medications Rx Family History Mother had a SC in her 60's. Social History No use of tobacco, etoh, or illicit drug use. (Preeti Painter) Review of Systems Constitutional: COMPLAINS OF: Fatigue, Change in appetite, DENIES: Weight loss Respiratory: DENIES: Cough, Shortness of breath Cardiovascular: COMPLAINS OF: Chest pain, DENIES: Lower Extremity Edema Gastrointestinal: COMPLAINS OF: Abdominal pain, Nausea, Vomiting, DENIES: Black stools, Bloody stools, Constipation, Diarrhea, Heartburn, Hematemesis Musculoskeletal: DENIES: Joint pain Integumentary: DENIES: Abnormal pigmentation Hematologic/lymphatic: DENIES: Bruising Neurologic: DENIES: Headache Psychiatric: DENIES: Confusion (Preeti Painter SHERIN) GI Exam Vitals I&O Vital Signs Date Time Temp Pulse Resp B/P Pulse Ox O2 Delivery O2 Flow Rate FiO2 03/16/16 08:30 97.0 65 16 139/73 97 03/16/16 03:55 98.9 74 18 130/78 98 03/16/16 00:51 98.8 87 18 128/76 98 03/16/16 00:00 63 03/15/16 20:06 63 03/15/16 19:14 98.0 62 21 129/76 100 03/15/16 16:35 96.7 71 16 146/78 100 03/15/16 16:00 74 03/15/16 13:15 157/97 03/15/16 12:34 98.7 79 16 100 03/15/16 12:00 200/110 I/O 03/15/16 03/15/16 03/15/16 03/16/16 03/16/16 03/16/16 07:00 15:00 23:00 07:00 15:00 23:00 Intake Total 0 ml Balance 0 ml Intake Oral 0 ml # Voids 3 3 # Bowel Movements 0 1 Imaging Last Impressions Hand X-Ray 03/15/16 0450 Signed Impressions: Service Date/Time: Tuesday, March 15, 2016 04:55 - CONCLUSION: Soft tissue swelling without fracture. Myke Cox MD Chest X-Ray 03/15/16 0402 Signed Impressions: Service Date/Time: Tuesday, March 15, 2016 04:04 - CONCLUSION: No acute cardiopulmonary disease. Mild cardiomegaly. Myke Cox MD Myocardial Perfusion Scan Nuc Med 03/15/16 0000 Signed Impressions: Service Date/Time: Tuesday, March 15, 2016 09:33 - CONCLUSION: 1. Possible reversible defect involving the lateral wall suggesting LCX ischemia. Clinical correlation is recommended. 2. No fixed defect to suggest infarct. 3. No focal wall motion abnormality. Left ventricular ejection fraction is calculated at 67%%. RISK CATEGORY: Intermediate risk (1-3%% annual mortality rate) . Antoni Bailey MD Laboratory Test 03/16/16 05:12 White Blood Count 5.4 TH/MM3 Red Blood Count 5.00 MIL/MM3 Hemoglobin 8.8 GM/DL Hematocrit 29.6 % Mean Corpuscular Volume 59.3 FL Mean Corpuscular Hemoglobin 17.6 PG Mean Corpuscular Hemoglobin 29.8 % Concent Red Cell Distribution Width 22.0 % Platelet Count 240 TH/MM3 Mean Platelet Volume 8.6 FL Neutrophils (%) (Auto) 68.7 % Lymphocytes (%) (Auto) 20.3 % Monocytes (%) (Auto) 8.7 % Eosinophils (%) (Auto) 1.5 % Basophils (%) (Auto) 0.8 % Neutrophils # (Auto) 3.7 TH/MM3 Lymphocytes # (Auto) 1.1 TH/MM3 Monocytes # (Auto) 0.5 TH/MM3 Eosinophils # (Auto) 0.1 TH/MM3 Basophils # (Auto) 0.0 TH/MM3 CBC Comment AUTO DIFF Differential Comment AUTO DIFF CONFIRMED Platelet Estimate NORMAL Platelet Morphology Comment NORMAL Tear Drop Cells 1+ Ovalocytes 1+ Keratocytes OCC Physical Examination HEENT: Normocephalic; atraumatic; no jaundice. Throat is clear. NECK: Neck is supple, no JVD, no lymphadenopathy. CHEST: CTA CARDIAC: RRR ABDOMEN: Soft, nondistended, nontender; no hepatosplenomegaly; bowel sounds are present in all four quadrants. EXTREMITIES: No clubbing, cyanosis, or edema. SKIN: Normal; no rash; no jaundice. [employer]PRESENTATIVE: No focal deficits; alert and oriented times three. (Preeti PainterP) Assessment and Plan Plan ASSESSMENT: - Atypical chest pain. S/P Cardiology evaluation, does not feel that this is of cardiac etiology and has recommended GI workup. Pt denies any hx of PUD. She did take a dose of ASA Tuesday for her thumb pain, but denies any regular NSAID use. She is not currently having chest pain. Will plan for egd in am. - Recent N/V, Epigastric pain. She had symptoms last week, states that these lasted a couple of days and resolved on own. Not currently having. - HTN per primary. PLAN: - Plan for egd in am - Obtain consents - Regular diet - NPO after MN - PPI - Supportive care - Further recommendations to follow based on results of above - Pt seen and examined by Dr. Yin and myself and this note is written on his behalf (Preeti Painter) Physician Comments Patient seen and examined Agree with above Continue with current supportive care Monitor labs Plan for EGD tomorrow (Jared Yin MD) Preeti Painter Mar 16, 2016 10:38 Jared Yin MD Mar 16, 2016 20:27
[2016-03-16 12:08] LABS: CREATINE KINASE 50 U/L (26-192)
--- NOTE | 2016-03-16 14:10 | EKG ---
Date Performed: 03/16/2016 Time Performed: 10:44:15 PTAGE: 50 years EKG: Sinus rhythm MODERATE T-WAVE ABNORMALITY, CONSIDER LATERAL ISCHEMIA ABNORMAL ECG Since PREVIOUS TRACING , no significant change noted PREVIOUS TRACIN03/15/2016 07.10 DOCTOR: Dwight Goode Interpretating Date/Time 03/16/2016 14:01:47
[2016-03-16] MEDS: FERROUS SULFATE 325 MG (65 MG ELEMENTAL IRON) TAB PO SCH ×2 (14:13→19:32)
[2016-03-16 17:43] LABS: CREATINE KINASE 52 U/L (26-192)
[2016-03-17] MEDS: ACETAMINOPHEN/HYDROcodone 325 MG/7.5 MG TAB PO PRN (00:03)
[2016-03-17 01:16] VITALS: BP 142/69; PULSE 66; RESP 20; TEMP 97.5; O2SAT 93
[2016-03-17 02:03] LABS: CREATINE KINASE 56 U/L (26-192)
[2016-03-17 04:23] VITALS: BP 130/79; PULSE 72; RESP 20; TEMP 98.4; O2SAT 96
[2016-03-17 05:15] VITALS: O2SAT 99
[2016-03-17] MEDS: NITROGLYCERIN 2% OINT 1 GM PACKET TOP SCH ×2 (05:46)
[2016-03-17 08:13] VITALS: BP 142/76; PULSE 63; RESP 18; TEMP 96.8; O2SAT 100
[2016-03-17] MEDS ORDERED: IRON SUCROSE INJ 200 MG in SODIUM CHLORIDE 0.9% INJ 100 ML IV SCH (09:00)
[2016-03-17] MEDS: amLODIPine BESYLATE 5 MG TAB PO SCH (10:20)
[2016-03-17] MEDS: CARVEDILOL 6.25 MG TAB PO SCH (10:20)
[2016-03-17] MEDS: PANTOPRAZOLE SOD 40 MG DELAYED RELEASE TAB PO SCH (10:20)
[2016-03-17] MEDS: ASPIRIN 325 MG TAB PO SCH (10:20)
[2016-03-17] MEDS: SODIUM CHLORIDE 0.9% FLUSH 5 ML FLUSH IVF SCH (10:22)
--- NOTE | 2016-03-17 10:41 | HHI.PR ---
Subjective Remarks Follow-up for anemia and chest pain. Daughter at bedside. No further chest pain overnight. Episode of chest pain yesterday morning, lasted a few seconds, lying in bed at rest. She tolerated iron with no GI upset. She states that prior to admission she was having some left hand pain with movement and swelling. The pain and swelling spontaneously resolved, no further issues. Objective Vitals Vital Signs Date Time Temp Pulse Resp B/P Pulse Ox O2 Delivery O2 Flow Rate FiO2 03/17/16 08:13 96.8 63 18 142/76 100 03/17/16 05:15 99 21 03/17/16 04:23 98.4 72 20 130/79 96 03/17/16 01:16 97.5 66 20 142/69 93 03/16/16 22:23 74 03/16/16 20:21 97.2 77 19 142/74 99 03/16/16 16:28 98.0 68 16 135/75 100 03/16/16 14:07 20 03/16/16 12:48 98.2 58 16 140/72 99 I/O 03/16/16 03/16/16 03/16/16 03/17/16 03/17/16 03/17/16 07:00 15:00 23:00 07:00 15:00 23:00 Intake Total 0 ml 800 ml Balance 0 ml 800 ml Intake Oral 0 ml 800 ml # Voids 3 7 # Bowel Movements 1 Result Diagram: 03/16/16 0512 03/15/16 0405 Imaging Last Impressions Hand X-Ray 03/15/16 0450 Signed Impressions: Service Date/Time: Tuesday, March 15, 2016 04:55 - CONCLUSION: Soft tissue swelling without fracture. Myke Cox MD Chest X-Ray 03/15/16 0402 Signed Impressions: Service Date/Time: Tuesday, March 15, 2016 04:04 - CONCLUSION: No acute cardiopulmonary disease. Mild cardiomegaly. Myke Cox MD Myocardial Perfusion Scan Nuc Med 03/15/16 0000 Signed Impressions: Service Date/Time: Tuesday, March 15, 2016 09:33 - CONCLUSION: 1. Possible reversible defect involving the lateral wall suggesting LCX ischemia. Clinical correlation is recommended. 2. No fixed defect to suggest infarct. 3. No focal wall motion abnormality. Left ventricular ejection fraction is calculated at 67%%. RISK CATEGORY: Intermediate risk (1-3%% annual mortality rate) . Antoni Bailey MD Objective Remarks GENERAL: Well-developed well-nourished. In no acute distress. SKIN: Warm and dry. No lesions noted. HEENT: Normocephalic. Pupils equal and round. Mucous membranes pink and moist. CARDIOVASCULAR: Regular rate and rhythm. No murmur appreciated. RESPIRATORY: No accessory muscle use. Clear to auscultation. Breath sounds equal bilaterally. GASTROINTESTINAL: Abdomen soft, non-tender, nondistended. Bowel sounds x4. MUSCULOSKELETAL: No obvious deformities. Full ROM left hand and wrist with no swelling or TTP. No clubbing or cyanosis. No edema. NEUROLOGICAL: Awake and alert. No focal neurological deficits. Moves upper and lower extremities spontaneously. Normal speech. PSYCHIATRIC: Appropriate mood and affect; insight and judgment normal. A/P Problem List: (1) Iron deficiency anemia ICD Code: D50.9 Status: Acute (2) Hypertensive heart disease ICD Code: I11.9 Status: Acute (3) Chest pain, rule out acute myocardial infarction ICD Code: R07.9 Status: Acute (4) Chronic anemia ICD Code: D64.9 Status: Acute Assessment and Plan 50-year-old female with: Chest Pain: Initially admitted to [facility], ACS ruled out with negative serial cardiac enzymes x2 and EKG without acute ST changes. Nuclear stress test showed possible reversible defect involving lateral wall suggesting LCX ischemia; clinical correlation, EF 67%. Echo with EF 65-70%, with moderate LVH, mild TR, mild [place]. Patient transferred to hospitalists with cardiology consulted, seen by Dr. Monique, recommended medical management and GI consult for evaluation of anemia. Started on Aspirin, Norvasc, Coreg. Nitro prn. Patient reports recurrent chest pains 03/16. EKG obtained, reviewed, no acute ST/ T changes. Further cardiac enzymes negative 3. SL Nitro. Symptoms possibly secondary to anemia vs musculoskeletal vs secondary to hypertension. Microcytic Iron Deficiency Anemia: possibly due to recent menstrual bleeding however will need to rule out GI etiology. Monitor H&H, currently Hgb 8.8. Stool hemoccult ordered. GI consulted, planning on EGD. Started on ferrous sulfate bid with meals. Hypertension: Started on Coreg and Norvasc as above. BP better controlled. Monitor. Left hand pain: Hand X-ray 03/15 showed soft tissue swelling with no fracture. Symptoms spontaneously resolved prior to admission. Sounds musculoskeletal. Outpatient PCP follow-up. DVT Prophylaxis: teds/SCDs Written by Woodrow Chowdhury, acting as scribe for Dr. Arreola on 03/17/16 at 10:45. The documentation accurately reflects the work performed [id number] by me on at 1045 Discharge Planning Follow-up results of the EGD, possible discharge today afterwards depending on findings. Woodrow Chowdhury Mar 17, 2016 10:41 Carmelo Arreola MD Mar 17, 2016 15:26
[2016-03-17 11:00] VITALS: BP 142/76; PULSE 63; RESP 18; TEMP 96.8; O2SAT 100
--- NOTE | 2016-03-17 13:36 | PD.PROCEDR ---
GI Procedure REFERRING PHYSICIAN Dr. Swanson PROCEDURE PERFORMED EGD with biopsy INDICATION FOR PROCEDURE Nausea vomiting and atypical chest pain PROCEDURE: The procedure, risks and benefits were discussed with Ms. Alarcon and informed consent was obtained. Anesthesia sedated her with Diprivan. She was placed in the left lateral decubitus position. EGD: The Pentax videoscope was introduced through the oropharynx and advanced to the second portion of the duodenum under direct visualization. Retroflexion was performed in the stomach. FINDINGS: The esophagus there was distal esophageal mucosal hyperplasia consistent with chronic reflux no ulcerations or erosions The stomach there was a small hiatal hernia there was also a small superficial antral ulcer clean base no visible vessel no blood or bleeding this was biopsied the rest of the gastric mucosa was unremarkable The duodenum there was another slightly larger ulcer clean base no visible vessel no blood or bleeding in the duodenal bulb this too was biopsied the rest of the duodenum was unremarkable ESTIMATED BLOOD LOSS: None SPECIMENS REMOVED: Antral and duodenal biopsies COMPLICATIONS: None IMPRESSION: Gastroesophageal reflux disease Small hiatal hernia Gastric ulcer Duodenal ulcer PLAN: Await biopsy Avoid NSAIDs and aspirin Recommend Protonix 40 mg daily Recommend reflux precautions EGD in 2 months Follow-up with GI post discharge Okay to use Plavix as an alternative to aspirin if needed as an anti-platelet agent Jared Yin MD Mar 17, 2016 13:36
[2016-03-17] MEDS ORDERED: PROPOFOL 200 MG/20 ML AMP IV ONE (13:43)
[2016-03-17] MEDS ORDERED: CARV6.25 PO (14:47)
[2016-03-17] MEDS ORDERED: FERR325T PO (14:47)
[2016-03-17] MEDS ORDERED: AMLO5 PO (14:47)
[2016-03-17] MEDS ORDERED: NITR0.4S SL (14:47)
[2016-03-17] MEDS ORDERED: PANT40TA3 PO (14:47)
[2016-03-17] MEDS ORDERED: PLAV75TA29 PO (15:00)
--- NOTE | 2016-03-17 15:06 | HHI.DS ---
Discharge Summary Admission Date Mar 15, 2016 at 06:02 Discharge Date: Mar 17, 2016 Admitting Diagnosis Cp ro mi, h/o htn (1) Iron deficiency anemia ICD Code: D50.9 Diagnosis: Secondary (2) Hypertensive heart disease ICD Code: I11.9 Diagnosis: Principal (3) Chest pain, rule out acute myocardial infarction ICD Code: R07.9 Diagnosis: Principal (4) Chronic anemia ICD Code: D64.9 Diagnosis: Secondary (5) PUD (peptic ulcer disease) ICD Code: K27.9 Diagnosis: Principal Procedures EGD/01/21 Brief History - From Admission This is a 50-year-old patient who presents to the emergency room with an onset of chest discomfort located under her left breast at approximately 2:00 a.m. this morning. The patient was not awoken from sleep. Characteristic of a sharp pressure. There was no radiation. Duration has been constant. Associated symptoms include - it hurts to take a deep breath and sometimes with movement. No nausea or diaphoresis or shortness of breath. No precipitating factors. No known factors. Has had similar pain in the past has had cardiac workup and states, "They never find anything wrong." No known relieving factors. CBC/BMP: 03/16/16 0512 03/15/16 0405 Significant Findings Laboratory Tests Test 03/15/16 03/15/16 03/16/16 03/16/16 04:05 07:15 05:12 11:39 Hemoglobin 9.5 GM/DL 8.8 GM/DL (11.6-15.3) (11.6-15.3) Hematocrit 31.1 % 29.6 % (35.0-46.0) (35.0-46.0) Mean Corpuscular Volume 58.9 FL 59.3 FL (80.0-100.0) (80.0-100.0) Mean Corpuscular Hemoglobin 18.1 PG 17.6 PG (27.0-34.0) (27.0-34.0) Mean Corpuscular Hemoglobin 30.7 % 29.8 % Concent (32.0-36.0) (32.0-36.0) Red Cell Distribution Width 21.5 % 22.0 % (11.6-17.2) (11.6-17.2) Monocytes (%) (Auto) 10.2 % 8.7 % (0.0-8.0) (0.0-8.0) Ovalocytes 1+ (NORMAL) 1+ (NORMAL) Acanthocytes OCC (NORMAL) Blood Urea Nitrogen 19 MG/DL (7-18) Calcium Level 8.4 MG/DL (8.5-10.1) Aspartate Amino Transf 11 U/L (15-37) (AST/SGOT) Troponin I LESS THAN 0.02 LESS THAN 0.02 LESS THAN 0.02 NG/ML NG/ML NG/ML (0.02-0.05) (0.02-0.05) (0.02-0.05) Iron Level 27 MCG/DL (50-170) Total Iron Binding Capacity 489 MCG/DL (250-450) Percent Iron Saturation 5.5 % (20-50) Ferritin 6 NG/ML (8-252) Total Creatine Kinase 235 U/L (26-192) Tear Drop Cells 1+ (NORMAL) Keratocytes OCC (NORMAL) Test 03/16/16 03/17/16 16:59 00:07 Troponin I LESS THAN 0.02 LESS THAN 0.02 NG/ML NG/ML (0.02-0.05) (0.02-0.05) Imaging Last Impressions Hand X-Ray 03/15/16 0450 Signed Impressions: Service Date/Time: Tuesday, March 15, 2016 04:55 - CONCLUSION: Soft tissue swelling without fracture. Myke Cox MD Chest X-Ray 03/15/16 0402 Signed Impressions: Service Date/Time: Tuesday, March 15, 2016 04:04 - CONCLUSION: No acute cardiopulmonary disease. Mild cardiomegaly. Myke Cox MD Myocardial Perfusion Scan Nuc Med 03/15/16 0000 Signed Impressions: Service Date/Time: Tuesday, March 15, 2016 09:33 - CONCLUSION: 1. Possible reversible defect involving the lateral wall suggesting LCX ischemia. Clinical correlation is recommended. 2. No fixed defect to suggest infarct. 3. No focal wall motion abnormality. Left ventricular ejection fraction is calculated at 67%%. RISK CATEGORY: Intermediate risk (1-3%% annual mortality rate) . Antoni Bailey MD PE at Discharge GENERAL: Well-developed well-nourished. In no acute distress. SKIN: Warm and dry. No lesions noted. HEENT: Normocephalic. Pupils equal and round. Mucous membranes pink and moist. CARDIOVASCULAR: Regular rate and rhythm. No murmur appreciated. RESPIRATORY: No accessory muscle use. Clear to auscultation. Breath sounds equal bilaterally. GASTROINTESTINAL: Abdomen soft, non-tender, nondistended. Bowel sounds x4. MUSCULOSKELETAL: No obvious deformities. Full ROM left hand and wrist with no swelling or TTP. No clubbing or cyanosis. No edema. NEUROLOGICAL: Awake and alert. No focal neurological deficits. Moves upper and lower extremities spontaneously. Normal speech. PSYCHIATRIC: Appropriate mood and affect; insight and judgment normal. Pt update on day of discharge Performed EGD which showed gastric and duodenal ulcer. Discussed with Dr. Yin, recommends against using aspirin and using Plavix instead. Discussed with ozzy Francisco to change aspirin to Plavix. Patient made aware of EGD findings and importance of cardiology and GI follow-up. Provided information for gastritis/PUD diet. All questions answered. Hospital Course 50-year-old female with: Chest Pain: Initially admitted to [facility], ACS ruled out with negative serial cardiac enzymes x2 and EKG without acute ST changes. Nuclear stress test showed possible reversible defect involving lateral wall suggesting LCX ischemia; clinical correlation, EF 67%. Echo with EF 65-70%, with moderate LVH, mild TR, mild AL. Patient transferred to hospitalists with cardiology consulted, seen by Dr. Monique, recommended medical management and GI consult for evaluation of anemia. Continue on Plavix, Norvasc, Coreg. Nitro prn. Patient reported recurrent chest pains 03/16. EKG obtained, reviewed, no acute ST /T changes. Further cardiac enzymes negative 3. SL Nitro. Symptoms possibly secondary PUD. Microcytic Iron Deficiency Anemia: possibly due to recent menstrual bleeding however will need to rule out GI etiology. Monitor H&H, currently stable at Hgb 8.8. GI consulted, performed EGD. Started on ferrous sulfate bid with meals. PUD: EGD showed gastric and duodenal ulcer. Avoid aspirin. Continue PPI. Educated on diet. Hypertension: Started on Coreg and Norvasc as above. BP better controlled. Monitor. Left hand pain: Hand X-ray 03/15 showed soft tissue swelling with no fracture. Symptoms spontaneously resolved prior to admission. Sounds musculoskeletal. Outpatient PCP follow-up. Pt Condition on Discharge: Stable Discharge Disposition: Discharge Home Discharge Time: > 30 minutes Discharge Instructions DIET: Follow Instructions for: Heart Healthy Diet Activities you can perform: Regular-No Restrictions Follow up Referrals: Cardiology - 3 Weeks with Geovani Monique MD Gastroenterology - 2 Weeks with Jared Yin MD PCP Follow-up - 1 Week New Medications: Clopidogrel (Plavix) 75 Mg Tab 75 MG PO DAILY Blood Clot Prevention #30 Ref 0 TAB Amlodipine (Norvasc) 5 Mg Tab 5 MG PO DAILY Blood Pressure Management #30 TAB Carvedilol (Coreg) 6.25 Mg Tab 6.25 MG PO Q12HR Blood Pressure Management #60 TAB Ferrous Sulfate (Ferrous Sulfate) 325 Mg Tab 325 MG PO BID@12,17 iron supplement #60 TAB Nitroglycerin SL (Nitrostat SL) 0.4 Mg Subl 0.4 MG SL Q5M PRN X 3 doses for chest pain #10 TAB Pantoprazole (Pantoprazole) 40 Mg Tab 40 MG PO DAILY ulcer #30 TAB Woodrow Chowdhury Mar 17, 2016 15:06
[2016-03-17 15:20] VITALS: BP 146/70; PULSE 63; RESP 18; TEMP 97.8; O2SAT 95
[2016-03-18] MEDS ORDERED: BACT800T5 PO (12:20)
[2016-03-18] MEDS ORDERED: CEPH-460 PO (12:20)
== END 2016-03-17 18:31 | disposition home or self-care (01) ==
LOC: NEPE 03:41 → NEDA 06:02 → NEPFCDU 08:30
PROVIDERS: ADMIT Internal Medicine; ATTEND Internal Medicine
DX: R07.89 Other chest pain (principal); D50.9 Iron deficiency anemia, unspecified; K27.9 Peptic ulcer, site unspecified, unspecified as acute or chronic, without hemorrhage or perforation; K21.9 Gastro-esophageal reflux disease without esophagitis; K44.9 Diaphragmatic hernia without obstruction or gangrene; I11.9 Hypertensive heart disease without heart failure; R94.31 Abnormal electrocardiogram [ECG] [EKG]; M10.9 Gout, unspecified; Z79.02 Long term (current) use of antithrombotics/antiplatelets
CPT/HCPCS: 00740; 43239; 71010; 73130; 78452; 80053; 82550; 82552; 82728; 83540; 83550; 83690; 83735; 83880; 84484; 84550; 84703; 85025; 85610; 85730; 88305; 88312; 93005; 93017; 93306; 99285; A9502; G0378; J1885; J2785; J7040

== ENCOUNTER 2016-03-18 11:05 | Emergency (ER) | payer SELFPAY ==
[~2016-03-18] VITALS: Ht 162.6 cm; Wt 90.0 kg
[~2016-03-18 11:05] MED LIST changes: +AMLO5 PO; +CARV6.25 PO; +FERR325T PO; -METO10TA PO; -NAPR500 PO; +NITR0.4S SL; +PANT40TA3 PO; +PLAV75TA29 PO; -ZOFR4TAB3 SL
[2016-03-18 11:07] VITALS: BP 194/95; PULSE 76; RESP 16; TEMP 97.9; O2SAT 100
--- NOTE | 2016-03-18 11:43 | PD ---
HPI Chief Complaint: Skin Problem Time Seen by Provider: 11:43 Travel History International Travel<30 days: No Contact w/Intl Traveler<30days: No Traveled to known affect area: No History of Present Illness HPI 50-year-old female presents to the emergency department for evaluation of possible infection to her left antecubital area. Patient states she had an IV there and was discharged yesterday from the hospital. She states last night, she started noticing some erythema and swelling to the area. She denies any fevers or chills. Patient does report a history of hypertension and PUD. She denies any other complaints at this time. She denies any chance of . PFSH Past Medical History Hx Anticoagulant Therapy: No Heart Rhythm Problems: No Cardiac Catheterization: No Cardiovascular Problems: Yes (htn) High Cholesterol: No Chemotherapy: No Congestive Heart Failure: No Cerebrovascular Accident: No Diabetes: No Diminished Hearing: No Hypertension: Yes Musculoskeletal: Yes (SCIATICA) Respiratory: No Immunizations Current: Yes : 3 Para: 3 Tubal Ligation: Yes (1993) Past Surgical History Section: Yes (X 1) Coronary Artery Bypass Graft: No Hysterectomy: No Social History Alcohol Use: No Tobacco Use: No Substance Use: No Allergies-Medications (Allergen,Severity, Reaction): Coded Allergies: No Known Allergies (Verified , 03/18/16) Reported Meds & Prescriptions Reported Meds & Active Scripts Active Plavix (Clopidogrel Bisulfate) 75 Mg Tab 75 Mg PO DAILY Pantoprazole (Pantoprazole Sodium) 40 Mg Tab 40 Mg PO DAILY Nitrostat SL (Nitroglycerin) 0.4 Mg Subl 0.4 Mg SL Q5M PRN Ferrous Sulfate 325 Mg Tab 325 Mg PO BID@,17 Coreg (Carvedilol) 6.25 Mg Tab 6.25 Mg PO Q12HR Norvasc (Amlodipine Besylate) 5 Mg Tab 5 Mg PO DAILY Review of Systems Except as stated in HPI: all other systems reviewed are Neg Physical Exam Narrative GENERAL: Well-developed well-nourished female patient, ambulatory and in no acute distress. Afebrile. SKIN: Warm and dry. Patient has a 1cm area of flatulence with mild erythema to the left antecubital. HEAD: Normocephalic. Atraumatic. EYES: No scleral icterus. No injection or drainage. NECK: Supple, trachea midline. No JVD or lymphadenopathy. CARDIOVASCULAR: Regular rate and rhythm without murmurs, gallops, or rubs. RESPIRATORY: Breath sounds equal bilaterally. No accessory muscle use. Lungs sounds clear to auscultation. MUSCULOSKELETAL: No cyanosis, or edema. Data Data Last Documented VS Vital Signs Date Time Temp Pulse Resp B/P Pulse Ox O2 Delivery O2 Flow Rate FiO2 03/18/16 11:07 97.9 76 16 194/95 100 Room Air Orders Wound Culture And Gram Stain (03/18/16 11:42) Lidocai-Epi 1%-1:100,000 Inj (Xylocaine- (03/18/16 11:45) Sulfamet-Trimeth Ds 800-160 Mg (Bactrim (03/18/16 12:15) Cephalexin (Keflex) (03/18/16 12:15) [facility] Medical Decision Making Medical Screen Exam Complete: Yes Emergency Medical Condition: Yes Medical Record Reviewed: Yes Differential Diagnosis Abscess versus cellulitis versus thrombophlebitis Narrative Course 50-year-old female presents to the emergency department for evaluation of possible infection to her left antecubital area where she had an IV was discharge yesterday from the hospital. Physical exam does reveal a small area of fluctuance with mild erythema. Patient gives verbal consent for incision and drainage. Patient will be discharged with a prescription for Bactrim and Keflex. She is given her first dose in the emergency department. Diagnosis Primary Impression: Abscess Referrals: Primary Care Physician call for appointment Patient Instructions: Abscess Incision and Drainage (ED), General Instructions Additional Instructions: Warm moist compresses. Clean twice daily with soap and water and apply [id number] antibiotic ointment. Take antibiotics as instructed until gone. Follow-up with a primary care physician. Return to the emergency department for any acute worsening of symptoms. Med/Other Pt SpecificInfo: Prescription(s) given Scripts Cephalexin (Keflex)500 Mg Nly228 Mg PO Q6H 10 Days Ref 0 Prov:Tatiana Watkins 03/18/16 Sulfamethoxazole-Trimethoprim (Bactrim DS)800-160 Mg Tab1 Tab PO BID #20 TAB Ref 0 Prov:Tatiana Watkins 03/18/16 Disposition: 01 DISCHARGE HOME Condition: Stable Tatiana Watkins Mar 18, 2016 11:43
[2016-03-18] MEDS ORDERED: LIDOCAINE 1%/EPINEPHrine 1:100,000 SOLN 20 ML VIAL INFIL ONE (11:45)
[2016-03-18] MEDS ORDERED: CEPHALEXIN MONOHYDRATE 500 MG CAP PO ONE (12:15)
[2016-03-18] MEDS ORDERED: SULFAMETHOXAZOLE-TRIMETHOPRIM DS 800-160 MG TAB PO ONE (12:15)
[2016-03-18] MEDS ORDERED: BACT800T5 PO (12:20)
[2016-03-18] MEDS ORDERED: CEPH-460 PO (12:20)
== END 2016-03-18 12:28 | disposition home or self-care (01) ==
LOC: NEPB 11:05
DX: L02.414 Cutaneous abscess of left upper limb (principal); B95.61 Methicillin susceptible Staphylococcus aureus infection as the cause of diseases classified elsewhere; I10 Essential (primary) hypertension
CPT/HCPCS: 10060; 86403; 87070; 87186; 99283

== ENCOUNTER 2016-03-28 08:16 | Emergency (ER) | payer SELFPAY ==
[~2016-03-28] VITALS: Ht 162.6 cm; Wt 90.0 kg
[~2016-03-28 08:16] MED LIST changes: +BACT800T5 PO; +CEPH-460 PO
[2016-03-28 08:18] VITALS: BP 153/69; PULSE 79; RESP 15; TEMP 98.5; O2SAT 99
[2016-03-28 09:01] LABS: AUTOMATED NEUTROPHIL # 6.5 TH/MM3 (1.8-7.7); BASOPHIL # 0.1 TH/MM3 (0-0.2); BASOPHIL % 0.8 % (0.0-2.0); EOSINOPHIL # 0.1 TH/MM3 (0-0.4); EOSINOPHIL % 0.7 % (0.0-4.0); HEMATOCRIT 33.9 % (35.0-46.0); LYMPH % 13.5 % (9.0-44.0); LYMPHOCYTE # 1.1 TH/MM3 (1.0-4.8); MEAN CELL VOLUME 61.1 FL (80.0-100.0); MEAN CORPUSCULAR HEMOGLOBIN 18.6 PG (27.0-34.0); MEAN CORPUSCULAR HGB CONC 30.4 % (32.0-36.0); MONO % 6.5 % (0.0-8.0); NEUT % 78.5 % (16.0-70.0); PLATELET COUNT 264 TH/MM3 (150-450); RED BLOOD COUNT 5.55 MIL/MM3 (4.00-5.30); RED CELL DISTRIBUTION WIDTH 23.5 % (11.6-17.2); WHITE BLOOD COUNT 8.2 TH/MM3 (4.0-11.0)
[2016-03-28 09:04] LABS: BLOOD, URINE NEG (NEG); GLUCOSE,URINE NEG (NEG); HEMO FLAGS AUTO DIFF; KETONE, URINE NEG (NEG); MUCUS URINE FEW /lpf (OCC); NITRITE,URINE NEG (NEG); SQUAMOUS EPITHELIAL CELL URINE 6 /hpf (0-5); URINE COLOR YELLOW (YELLW/STRAW)
[2016-03-28 09:06] LABS: COMMENT (UR) CULT NOT INDICATED; CULTURE IF INDICATED CULT NOT INDICATED
[2016-03-28] MEDS ORDERED: MORPHINE SULFATE 4 MG/ML INJ IV PUSH ONE (09:15)
[2016-03-28] MEDS ORDERED: ONDANSETRON HCL 4 MG/2 ML VIAL IV PUSH ONE (09:15)
[2016-03-28 09:20] VITALS: BP 158/67; PULSE 74; RESP 16; O2SAT 100
[2016-03-28 09:34] LABS: ALKALINE PHOSPHATASE 83 U/L (45-117); ALT (GPT) 17 U/L (10-53); ANION GAP 9 MEQ/L (5-15); AST (GOT) 18 U/L (15-37); BICARBONATE 19.9 MEQ/L (21.0-32.0); BLOOD UREA NITROGEN 13 MG/DL (7-18); CHLORIDE 107 MEQ/L (98-107); GLOMERULAR FILTRATION RATE 90 ML/MIN (>89); POTASSIUM 4.6 MEQ/L (3.5-5.1); SODIUM (NA) 136 MEQ/L (136-145); TOTAL BILIRUBIN ADULT 0.5 MG/DL (0.2-1.0)
[2016-03-28 09:36] LABS: OVALOCYTES 1+ (NORMAL); PLATELET ESTIMATE SMEAR NORMAL (NORMAL); PLATELET MORPHOLOGY NORMAL (NORMAL); SCAN/DIFF AUTO DIFF CONFIRMED
--- NOTE | 2016-03-28 10:08 | PD ---
HPI Chief Complaint: Abdominal Pain Time Seen by Provider: 09:01 Travel History International Travel<30 days: No Contact w/Intl Traveler<30days: No Traveled to known affect area: No History of Present Illness HPI 50-year-old female presents with right upper quadrant abdominal pain that is been present over the past couple of days. She states she was recently discharged from the hospital with ulcers and gallbladder problems that they found on a scope of her stomach. She states she did not have an ultrasound that she can remember. Quality pain is sharp. Severity is moderate. She states it also goes into her right upper back. She states that she's also had back issues for a while and sometime she hurts on the left side of her back to. She denies any urinary symptoms or other concurrent complaints. She confirms getting switched from aspirin to Plavix with her recent hospitalization with her ulcers. She denies other modifying factors. PFSH Past Medical History Hx Anticoagulant Therapy: No Heart Rhythm Problems: No Cardiac Catheterization: No Cardiovascular Problems: Yes (htn) High Cholesterol: No Chemotherapy: No Congestive Heart Failure: No Cerebrovascular Accident: No Diabetes: No Diminished Hearing: No Hypertension: Yes Musculoskeletal: Yes (SCIATICA) Respiratory: No Immunizations Current: Yes ?: Not : 3 Para: 3 Tubal Ligation: Yes (1993) Past Surgical History Section: Yes (X 1) Coronary Artery Bypass Graft: No Hysterectomy: No Family History Family Myocardial Infarction: Yes Social History Alcohol Use: No Tobacco Use: No Substance Use: No Allergies-Medications (Allergen,Severity, Reaction): Coded Allergies: No Known Allergies (Verified , 03/28/16) Reported Meds & Prescriptions Reported Meds & Active Scripts Active Keflex (Cephalexin) 500 Mg Cap 500 Mg PO Q6H 10 Days Bactrim DS (Sulfamethoxazole-Trimethoprim) 800-160 Mg Tab 1 Tab PO BID Plavix (Clopidogrel Bisulfate) 75 Mg Tab 75 Mg PO DAILY Pantoprazole (Pantoprazole Sodium) 40 Mg Tab 40 Mg PO DAILY Nitrostat SL (Nitroglycerin) 0.4 Mg Subl 0.4 Mg SL Q5M PRN Ferrous Sulfate 325 Mg Tab 325 Mg PO BID@12,17 Coreg (Carvedilol) 6.25 Mg Tab 6.25 Mg PO Q12HR Norvasc (Amlodipine Besylate) 5 Mg Tab 5 Mg PO DAILY Review of Systems Except as stated in HPI: all other systems reviewed are Neg Physical Exam Narrative GENERAL: Well-nourished, well-developed patient. SKIN: Warm and dry. HEAD: Normocephalic and atraumatic. EYES: No injection or drainage. ENT: No nasal drainage noted. NECK: Supple, trachea midline. CARDIOVASCULAR: Regular rate and rhythm RESPIRATORY: No increased effort. No accessory muscle use. GASTROINTESTINAL: Abdomen soft, tender right upper quadrant, nondistended. EXTREMITIES: No edema. BACK: Nontender without obvious deformity in midline, no CVA tenderness, bilateral lumbar lateral tenderness noted. NEUROLOGICAL: Awake and alert. Motor and sensory grossly within normal limits. Normal speech. Data Data Last Documented VS Vital Signs Date Time Temp Pulse Resp B/P Pulse Ox O2 Delivery O2 Flow Rate FiO2 03/28/16 12:00 70 17 124/72 99 Room Air 03/28/16 08:18 98.5 Orders Complete Blood Count With Diff (03/28/16 08:46) Comprehensive Metabolic Panel (03/28/16 08:46) Urinalysis - C+S If Indicated (03/28/16 08:46) Iv Access Insert/Monitor (03/28/16 08:46) Oxygen Administration (03/28/16 08:46) Oximetry (03/28/16 08:46) Lipase (03/28/16 08:46) Ed Urine Pregnancytest Poc (03/28/16 08:46) Lactic Acid (03/28/16 08:46) Us Abdomen Gallbladder (03/28/16 ) Morphine Inj (Morphine Inj) (03/28/16 09:15) Ondansetron Inj (Zofran Inj) (03/28/16 09:15) Ct Abd/Pel W Iv Contrast(Rout) (03/28/16 ) Iohexol 350 Inj (Omnipaque 350 Inj) (03/28/16 13:02) Labs Laboratory Tests Test 03/28/16 08:45 White Blood Count 8.2 TH/MM3 Red Blood Count 5.55 MIL/MM3 Hemoglobin 10.3 GM/DL Hematocrit 33.9 % Mean Corpuscular Volume 61.1 FL Mean Corpuscular Hemoglobin 18.6 PG Mean Corpuscular Hemoglobin 30.4 % Concent Red Cell Distribution Width 23.5 % Platelet Count 264 TH/MM3 Mean Platelet Volume 8.9 FL Neutrophils (%) (Auto) 78.5 % Lymphocytes (%) (Auto) 13.5 % Monocytes (%) (Auto) 6.5 % Eosinophils (%) (Auto) 0.7 % Basophils (%) (Auto) 0.8 % Neutrophils # (Auto) 6.5 TH/MM3 Lymphocytes # (Auto) 1.1 TH/MM3 Monocytes # (Auto) 0.5 TH/MM3 Eosinophils # (Auto) 0.1 TH/MM3 Basophils # (Auto) 0.1 TH/MM3 CBC Comment AUTO DIFF Differential Comment AUTO DIFF CONFIRMED Platelet Estimate NORMAL Platelet Morphology Comment NORMAL Ovalocytes 1+ Urine Color YELLOW Urine Turbidity HAZY Urine pH 6.0 Urine Specific [place] 1.026 Urine Protein NEG mg/dL Urine Glucose (UA) NEG mg/dL Urine Ketones NEG mg/dL Urine Occult Blood NEG Urine Nitrite NEG Urine Bilirubin NEG Urine Urobilinogen LESS THAN 2.0 MG/DL Urine Leukocyte Esterase NEG Urine RBC LESS THAN 1 /hpf Urine WBC LESS THAN 1 /hpf Urine Squamous Epithelial 6 /hpf Cells Urine Mucus FEW /lpf Microscopic Urinalysis Comment CULT NOT INDICATED Sodium Level 136 MEQ/L Potassium Level 4.6 MEQ/L Chloride Level 107 MEQ/L Carbon Dioxide Level 19.9 MEQ/L Anion Gap 9 MEQ/L Blood Urea Nitrogen 13 MG/DL Creatinine 0.82 MG/DL Estimat Glomerular Filtration 90 ML/MIN Rate Random Glucose 83 MG/DL Lactic Acid Level 0.8 mmol/L Calcium Level 8.6 MG/DL Total Bilirubin 0.5 MG/DL Aspartate Amino Transf 18 U/L (AST/SGOT) Alanine Aminotransferase 17 U/L (ALT/SGPT) Alkaline Phosphatase 83 U/L Total Protein 7.6 GM/DL Albumin 3.4 GM/DL Lipase 148 U/L [facility] Medical Decision Making Medical Screen Exam Complete: Yes Emergency Medical Condition: Yes Interpretation(s) CBC & BMP Diagram 03/28/16 08:45 Last 24 hours Impressions Gall Bladder Ultrasound 03/28/16 0000 Signed Impressions: Service Date/Time: Monday, March 28, 2016 11:11 - CONCLUSION: 1. There is a mass in the right abdomen superior to the umbilicus that may represent an exophytic/subserosal leiomyoma arising from the uterus. The uterus appears enlarged and contains another mass measuring 6.2 cm. Suggest correlation with the clinical history. It would be ideal to confirm this connects with the uterus with cross-sectional imaging. 2. Remainder of the examination demonstrates no significant abnormality. Dre Cuellar MD Abdomen/Pelvis CT 03/28/16 0000 Signed Impressions: Service Date/Time: Monday, March 28, 2016 12:59 - CONCLUSION: 1. Markedly enlarged uterus containing multiple masses with a low-density mass in the fundal aspect measuring approximately 11.3 cm. There is an exophytic mass arising from the right fundus measuring approximately 8.7 cm. This mass extends to the level of the inferior liver superior to the umbilicus. These likely represent very large and heterogeneous uterine fibroids. 2. Trace free fluid in the pelvis. Dre Cuellar MD Differential Diagnosis Cholecystitis, cholelithiasis, UTI, musculoskeletal, stone, ulcer Narrative Course Will add on gallbladder ultrasound to protocol ordered while I was with a coding patient and dose with morphine and Zofran and reevaluate multiple calls placed to ultrasound that in progress and needs shifted for radiologist to read Ultrasound with possible fibroids but not fully visualized, CT added on Patient denies any new complaints and states that they are feeling better, updated about fibroids. Patient happy with care, all questions answered. Patient knows that follow up is incumbent on them and to return to the emergency room immediately if new or worsening symptoms develop. Patient given strict return precautions, vitals reviewed and are normal, agrees to further workup as an outpatient. Diagnosis Primary Impression: Abdominal pain Qualified Code: R10.84 - Generalized abdominal pain Patient Instructions: General Instructions Additional Instructions: return as needed, tylenol as needed, follow with primary tommorrow, set up a associate counsel Med/Other Pt SpecificInfo: No Change to Meds Disposition: 01 DISCHARGE HOME Condition: Stable Claudia Vela MD Mar 28, 2016 10:08
[2016-03-28 11:05] VITALS: BP 153/72; PULSE 70; RESP 16; O2SAT 99
[2016-03-28 12:00] VITALS: BP 124/72; PULSE 70; RESP 17; O2SAT 99
--- NOTE | 2016-03-28 12:20 | RADRPT ---
EXAM DATE/TIME: 03/28/2016 11:11 [facility] COMPARISON: No previous studies available for comparison. INDICATIONS : Right abdomen pain. MEDICAL HISTORY : Hypertension. Sciatica. SURGICAL HISTORY : section. Tubal ligation. ENCOUNTER: Initial ACUITY: 2 weeks PAIN SCORE: 10/10 LOCATION: Right abdomen. MEASUREMENTS: LIVER: 16.0 cm length COMMON DUCT: 5 mm RIGHT KIDNEY: 10.4 x 4.7 x 5.2 cm FINDINGS: LIVER: Normal echotexture without concerning focal lesion or ductal dilatation. There is a simple cyst in th e right lobe measuring 13 mm. COMMON DUCT: No intraluminal mass or stone visualized. GALLBLADDER: Contains no stones, demonstrates no wall thickening or pericholecystic fluid. PANCREAS: The visualized portions are within normal limits. RIGHT KIDNEY: No evidence of hydronephrosis, stone, or mass. There is a hypoechoic solid appearing mass in the right abdomen superior to the level of the umbilicu s measuring 7.5 x 6.9 x 7.0 cm. This is adjacent to what appears to be an enlarged uterus that also c ontains a second mass measuring up to 6.2 cm. CONCLUSION: 1. There is a mass in the right abdomen superior to the umbilicus that may represent an exophytic/sub serosal leiomyoma arising from the uterus. The uterus appears enlarged and contains another mass carmen uring 6.2 cm. Suggest correlation with the clinical history. It would be ideal to confirm this connec ts with the uterus with cross-sectional imaging. 2. Remainder of the examination demonstrates no significant abnormality. Dre Cuellar MD on March 28, 2016 at 12:15 Board Certified Radiologist. This report was verified electronically.
[2016-03-28] MEDS ORDERED: IOHEXOL 350 MG/ML 10 ML VIAL (for RAD DIAG) IV ONE (13:02)
--- NOTE | 2016-03-28 13:43 | RADRPT ---
EXAM DATE/TIME: 03/28/2016 12:59 [place] COMPARISON: No previous studies available for comparison. INDICATIONS : Right lower abdominal pain. IV CONTRAST: 85 cc Omnipaque 350 (iohexol) IV ORAL CONTRAST: No oral contrast ingested. RADIATION DOSE: 13.94 CTDIvol (mGy) MEDICAL HISTORY : Hypertension. Cardiovascular disease SURGICAL HISTORY : Tubal ligation. section. ENCOUNTER: Initial ACUITY: 1 day PAIN SCALE: 3/10 LOCATION: Right lower quadrant TECHNIQUE: Volumetric scanning of the abdomen and pelvis was performed. Using automated exposure control and ad justment of the mA and/or kV according to patient size, radiation dose was kept as low as reasonably achievable to obtain optimal diagnostic quality images. FINDINGS: LOWER LUNGS: The visualized lower lungs are clear. LIVER: Homogeneous density without concerning lesion. There is a 10 mm cyst in the central liver. There is no dilation of the biliary tree. No calcified gallstones. SPLEEN: Normal size without lesion. PANCREAS: Within normal limits. KIDNEYS: Normal in size and shape. There is no mass, stone or hydronephrosis. ADRENAL GLANDS: Within normal limits. VASCULAR: There is no aortic aneurysm. BOWEL/MESENTERY: The stomach, small bowel, and colon demonstrate no acute abnormality. There is no free intraperitone al air. There is trace free fluid in the pelvis. ABDOMINAL WALL: Within normal limits. RETROPERITONEUM: No lymphadenopathy. BLADDER: No wall thickening or mass. REPRODUCTIVE: Uterus is markedly enlarged and heterogeneous containing likely multiple masses. At the fundus there is a heterogeneous low-density mass measuring up to approximately 11.3 cm. There is an exophytic mass arising from the right fundal region measuring 8.7 cm. I do not definitively see the ovaries. INGUINAL: There is no lymphadenopathy or hernia. MUSCULOSKELETAL: Within normal limits for patient age. CONCLUSION: 1. Markedly enlarged uterus containing multiple masses with a low-density mass in the fundal aspect m easuring approximately 11.3 cm. There is an exophytic mass arising from the right fundus measuring ap proximately 8.7 cm. This mass extends to the level of the inferior liver superior to the umbilicus. T hese likely represent very large and heterogeneous uterine fibroids. 2. Trace free fluid in the pelvis. Dre Cuellar MD on March 28, 2016 at 13:31 Board Certified Radiologist. This report was verified electronically.
[2016-03-28 14:53] VITALS: BP 119/70
== END 2016-03-28 14:53 | disposition home or self-care (01) ==
LOC: NEPC 08:16
DX: R10.84 Generalized abdominal pain (principal); Z79.02 Long term (current) use of antithrombotics/antiplatelets; I10 Essential (primary) hypertension
CPT/HCPCS: 74177; 76705; 80053; 81001; 83605; 83690; 84703; 85025; 96374; 96375; 99284; J2270; J2405; Q9967

== ENCOUNTER 2016-06-21 21:35 | Emergency (ER) | payer SELFPAY ==
[~2016-06-21] VITALS: Ht 165.1 cm; Wt 90.0 kg
[2016-06-21 21:40] VITALS: BP 228/108; PULSE 96; RESP 16; TEMP 98.2; O2SAT 98
--- NOTE | 2016-06-21 22:22 | PD ---
Physical Exam Time Seen by Provider: 22:18 Narrative 50 year old female pt presents to the ED for evaluation of bilateral foot pain and swelling and bilateral hand pain for the last month. Pt states she has been told she has gout in the past. She denies any injury. Has history of HTN, anemia , angin, gerd. She has been out of her medications since April. Denies any headach, focal deficit, or weakness. Denies any recent illness, fever, or chills. No other symptoms to report at this time. Data Data Last Documented VS Vital Signs Date Time Temp Pulse Resp B/P Pulse Ox O2 Delivery O2 Flow Rate FiO2 06/21/16 21:40 98.2 96 16 228/108 98 MDM Medical Record Reviewed: Yes Supervised Visit with JOAQUINA: No Narrative Course 50 year old female presents to the ED for evaluation of bilateral foot pain and swelling and bilateral hand pain for one month. Pt is hypertensive, but has been without her medication since April. Appears otherwise without distress. Condition: Stable Marlin Cunha Jun 21, 2016 22:22
[2016-06-22] MEDS ORDERED: amLODIPine BESYLATE 5 MG TAB PO ONE (00:30)
[2016-06-22 00:56] VITALS: BP 240/120; PULSE 86; RESP 16; O2SAT 100
--- NOTE | 2016-06-22 01:04 | PD ---
HPI Chief Complaint: Edema Time Seen by Provider: 23:59 Travel History International Travel<30 days: No Contact w/Intl Traveler<30days: No Traveled to known affect area: No History of Present Illness HPI The patient is a 50 year old female who presents to the [facility] emergency department with a history of diffuse right foot pain that she reports began 2-3 weeks ago. The patient reports that the pain is continuous. She reports that it is an aching sensation. She denies having any redness or open wound associated with it. She denies having any trauma. She denies participating in any new exercise program. She reports that she has had a history of gout and is concerned that she may be experiencing an exacerbation. The patient also has a history of high blood pressure, however she has not been compliant with medication for this for the last 2 months. She reports that she is in the process of reapplying for patient assistance. The patient was previously on Coreg and Norvasc. The patient denies any recent fevers, cough, congestion, neck pain, chest pain, shortness of breath, abdominal pain, vomiting , diarrhea, urinary symptoms, one-sided weakness, slurred speech, dizziness, difficulty with word finding ability, vision changes, or facial droop. PFSH Past Medical History Narrative Medical The patient's past medical history is significant for hypertension, history of sciatica, history of gout, history of peptic ulcer disease. Hx Anticoagulant Therapy: No Heart Rhythm Problems: No Cardiac Catheterization: No Cardiovascular Problems: Yes (htn) High Cholesterol: No Chemotherapy: No Congestive Heart Failure: No Cerebrovascular Accident: No Diabetes: No Diminished Hearing: No GERD: Yes Hypertension: Yes Musculoskeletal: Yes (SCIATICA) Respiratory: No Immunizations Current: Yes Ulcer: Yes Influenza Vaccination: No ?: Not LMP: 06/02/2016 : 3 Para: 3 Tubal Ligation: Yes (1993) Past Surgical History Narrative Surgical The patient's past surgical history is significant for a times one. Section: Yes (X 1) Coronary Artery Bypass Graft: No Hysterectomy: No Family History Family Myocardial Infarction: Yes Social History Alcohol Use: No Tobacco Use: No Substance Use: No Allergies-Medications (Allergen,Severity, Reaction): Coded Allergies: No Known Allergies (Verified , 03/28/16) Reported Meds & Prescriptions Reported Meds & Active Scripts Active Celebrex (Celecoxib) 50 Mg Cap 50 Mg PO BID PRN Coreg (Carvedilol) 6.25 Mg Tab 6.25 Mg PO Q12HR Norvasc (Amlodipine Besylate) 5 Mg Tab 5 Mg PO DAILY Plavix (Clopidogrel Bisulfate) 75 Mg Tab 75 Mg PO DAILY Pantoprazole (Pantoprazole Sodium) 40 Mg Tab 40 Mg PO DAILY Nitrostat SL (Nitroglycerin) 0.4 Mg Subl 0.4 Mg SL Q5M PRN Ferrous Sulfate 325 Mg Tab 325 Mg PO BID@12,17 Review of Systems Except as stated in HPI: all other systems reviewed are Neg General / Constitutional: No: Fever Eyes: No: Visual changes HENT: No: Headaches, Neck Stiffness, Neck Pain Cardiovascular: No: Chest Pain or Discomfort Respiratory: No: Shortness of Breath Gastrointestinal: No: Nausea, Vomiting, Diarrhea, Abdominal Pain Genitourinary: No: Dysuria Musculoskeletal: Positive: Myalgias, Pain Skin: No Rash Neurologic: No: Weakness, Focal Abnormalities, Headache, Change in Mentation, Sensory Disturbance Psychiatric: No: Depression Endocrine: No: Polydipsia Hematologic/Lymphatic: No: Easy Bruising Physical Exam Narrative General: The patient is a well-developed well-nourished female in no acute distress. Head and Neck exam: Head is normocephalic atraumatic. Eyes: EOMI, pupils are equal round and reactive to light. Nose: Midline septum with pink mucous membranes Mouth: Dentition unremarkable. Moist mucus membranes. Posterior oropharynx is not erythematous. No tonsillar hypertrophy. Uvula midline. Airway patent. Neck: No palpable lymphadenopathy. No nuchal rigidity. No thyromegaly. Cardiovascular: Regular rate and rhythm without murmurs, gallops, or rubs. Lungs: Clear to auscultation bilaterally. No wheezes, rhonchi, or rales. Abdomen: Soft, without tenderness to palpation in all 4 quadrants of the abdomen. No guarding, rebound, or rigidity. Normal bowel sounds are audible. Extremities: No clubbing or cyanosis. The patient has trace pedal edema bilaterally. 2+ pulses in all 4 extremities. On examination of the area of interest, the right foot, the patient reports tenderness on palpation along the plantar fascia. There is no significant swelling. No erythema or ecchymosis. No crepitus. No deformity. No calf tenderness on palpation. Back: No spinous process tenderness to palpation. No costovertebral angle tenderness to palpation. Neurologic Exam: Cranial nerves 2-12 were intact on exam. Strength is 5/5 in all 4 extremities. No sensory deficits noted. Skin Exam: No rash noted. Intact skin that is warm and dry. Data Data Last Documented VS Vital Signs Date Time Temp Pulse Resp B/P Pulse Ox O2 Delivery O2 Flow Rate FiO2 06/22/16 03:41 77 16 199/87 100 Room Air 06/21/16 21:40 98.2 Orders Complete Blood Count With Diff (06/22/16 00:13) Comprehensive Metabolic Panel (06/22/16 00:13) B-Type Natriuretic Peptide (06/22/16 00:13) Urinalysis - C+S If Indicated (06/22/16 00:13) Magnesium (Mg) (06/22/16 00:13) Thyroid Stimulating Hormone (06/22/16 00:13) Iv Access Insert/Monitor (06/22/16 00:13) Ecg Monitoring (06/22/16 00:13) Oximetry (06/22/16 00:13) Uric Acid (06/22/16 00:13) Amlodipine (Norvasc) (06/22/16 00:30) Carvedilol (Coreg) (06/22/16 03:30) Acetaminophen (Tylenol) (06/22/16 03:30) Labs Laboratory Tests Test 06/22/16 06/22/16 06/22/16 01:10 01:35 03:00 Sodium Level 140 MEQ/L Potassium Level 4.4 MEQ/L Chloride Level 108 MEQ/L Carbon Dioxide Level 24.9 MEQ/L Anion Gap 7 MEQ/L Blood Urea Nitrogen 21 MG/DL Creatinine 0.75 MG/DL Estimat Glomerular Filtration 100 ML/MIN Rate Random Glucose 83 MG/DL Uric Acid 4.1 MG/DL Calcium Level 8.3 MG/DL Magnesium Level 2.1 MG/DL Total Bilirubin 0.3 MG/DL Aspartate Amino Transf 23 U/L (AST/SGOT) Alanine Aminotransferase 19 U/L (ALT/SGPT) Alkaline Phosphatase 120 U/L B-Type Natriuretic Peptide 74 PG/ML Total Protein 7.4 GM/DL Albumin 3.4 GM/DL Thyroid Stimulating Hormone 2.500 uIU/ML 3rd Gen Urine Color COLORLESS Urine Turbidity CLEAR Urine pH 7.0 Urine Specific Viper 1.007 Urine Protein NEG mg/dL Urine Glucose (UA) NEG mg/dL Urine Ketones NEG mg/dL Urine Occult Blood NEG Urine Nitrite NEG Urine Bilirubin NEG Urine Urobilinogen LESS THAN 2.0 MG/DL Urine Leukocyte Esterase NEG Urine RBC LESS THAN 1 /hpf Urine WBC LESS THAN 1 /hpf Urine Squamous Epithelial 1 /hpf Cells Microscopic Urinalysis Comment CULT NOT INDICATED White Blood Count 5.4 TH/MM3 Red Blood Count 5.25 MIL/MM3 Hemoglobin 10.3 GM/DL Hematocrit 33.6 % Mean Corpuscular Volume 64.0 FL Mean Corpuscular Hemoglobin 19.6 PG Mean Corpuscular Hemoglobin 30.6 % Concent Red Cell Distribution Width 19.0 % Platelet Count 216 TH/MM3 Mean Platelet Volume 9.1 FL Neutrophils (%) (Auto) 67.2 % Lymphocytes (%) (Auto) 23.1 % Monocytes (%) (Auto) 7.6 % Eosinophils (%) (Auto) 1.3 % Basophils (%) (Auto) 0.8 % Neutrophils # (Auto) 3.6 TH/MM3 Lymphocytes # (Auto) 1.2 TH/MM3 Monocytes # (Auto) 0.4 TH/MM3 Eosinophils # (Auto) 0.1 TH/MM3 Basophils # (Auto) 0.0 TH/MM3 CBC Comment AUTO DIFF Differential Comment AUTO DIFF CONFIRMED Platelet Estimate NORMAL Platelet Morphology Comment NORMAL MDM Medical Decision Making Medical Screen Exam Complete: Yes Emergency Medical Condition: Yes Medical Record Reviewed: Yes Differential Diagnosis Gout, versus plantar fasciitis, versus tendinitis, versus osteoarthritis Narrative Course During the course of the patients emergency department visit, the patients history, examination, and differential diagnosis were reviewed with the patient. The patient had incidental noted elevated blood pressure with a history of medication noncompliance. The patient was educated regarding the importance of taking her medications as prescribed as she is putting herself at risk for stroke and heart attack with uncontrolled high blood pressure. The patient was initially provided her usual blood pressure medication regimen including Norvasc 5 mg by mouth 1, carvedilol 6.25 mg by mouth 1. The patient was given Tylenol for pain in her right foot. The patients laboratory studies were reviewed and remarkable for a white count of 5.4, hemoglobin 10.3, platelets 216 with a normal differential, CMP is remarkable for chloride of 108, BUN 21, calcium 8.3, alkaline phosphatase 120, BNP is 74, TSH 2.5, urinalysis unremarkable. I suspect that the patient's foot pain is related to plantar fasciitis. The patient will be discharged home with a prescription for Celebrex. The patient additionally was restarted back on her blood pressure medication regimen. The patient is resting comfortably and feels better, is alert and in no distress. The patients results and examination findings were discussed with the patient. The repeat examination is unremarkable and benign. The history, exam, diagnostic testing, and current condition do not suggest any significant pathology to warrant further testing, continued ED treatment, admission, or surgical evaluation at this point. The vital signs have been stable. The patient does not have uncontrollable pain, intractable vomiting, or other significant symptoms. The patient's condition is stable and appropriate for discharge. The patient will pursue further outpatient evaluation with a primary care physician or other designated or consulting physician as indicated in the discharge instructions. The patient expressed understanding and was agreeable with this plan. Diagnosis Primary Impression: HTN (hypertension) Qualified Code: I10 - Essential hypertension Additional Impressions: Noncompliance with medication regimen Plantar fasciitis of right foot Referrals: Patient Assistance Program 3 days Primary Care Physician 3 days Patient Instructions: General Instructions, Hypertension (ED), Plantar Fasciitis (ED) Departure Forms: Tests/Procedures Med/Other Pt SpecificInfo: Prescription(s) given Scripts Celecoxib (Celebrex)50 Mg Cap50 Mg PO BID PRN (PAIN GREATER THAN 5) #10 CAP Ref 0 Prov:Macarena Monique MD 06/22/16 Carvedilol (Coreg)6.25 Mg Tab6.25 Mg PO Q12HR #60 TAB Prov:Macarena Monique MD 06/22/16 Amlodipine (Norvasc)5 Mg Tab5 Mg PO DAILY #30 TAB Prov:Macarena Monique MD 06/22/16 Disposition: DISCHARGE HOME Condition: Stable Macarena Monique MD Jun 22, 2016 01:04
[2016-06-22 01:43] LABS: ANION GAP 7 MEQ/L (5-15); AST (GOT) 23 U/L (15-37); BICARBONATE 24.9 MEQ/L (21.0-32.0); BLOOD UREA NITROGEN 21 MG/DL (7-18); CHLORIDE 108 MEQ/L (98-107); GLOMERULAR FILTRATION RATE 100 ML/MIN (>89); MAGNESIUM 2.1 MG/DL (1.5-2.5); POTASSIUM 4.4 MEQ/L (3.5-5.1); SODIUM (NA) 140 MEQ/L (136-145); URIC ACID 4.1 MG/DL (2.6-6.0)
[2016-06-22 01:48] LABS: ALKALINE PHOSPHATASE 120 U/L (45-117); ALT (GPT) 19 U/L (10-53); TOTAL BILIRUBIN ADULT 0.3 MG/DL (0.2-1.0)
[2016-06-22 01:57] LABS: BLOOD, URINE NEG (NEG); COMMENT (UR) CULT NOT INDICATED; CULTURE IF INDICATED CULT NOT INDICATED; GLUCOSE,URINE NEG (NEG); KETONE, URINE NEG (NEG); NITRITE,URINE NEG (NEG); SQUAMOUS EPITHELIAL CELL URINE 1 /hpf (0-5); URINE COLOR COLORLESS (YELLW/STRAW)
[2016-06-22 02:57] VITALS: BP 214/107
[2016-06-22] MEDS ORDERED: CARV6.25 PO (02:58)
[2016-06-22] MEDS ORDERED: AMLO5 PO (02:58)
[2016-06-22] MEDS ORDERED: CELE50CA PO (02:58)
[2016-06-22 03:23] LABS: AUTOMATED NEUTROPHIL # 3.6 TH/MM3 (1.8-7.7); BASOPHIL % 0.8 % (0.0-2.0); EOSINOPHIL # 0.1 TH/MM3 (0-0.4); EOSINOPHIL % 1.3 % (0.0-4.0); HEMATOCRIT 33.6 % (35.0-46.0); LYMPH % 23.1 % (9.0-44.0); LYMPHOCYTE # 1.2 TH/MM3 (1.0-4.8); MEAN CORPUSCULAR HEMOGLOBIN 19.6 PG (27.0-34.0); MEAN CORPUSCULAR HGB CONC 30.6 % (32.0-36.0); MONO % 7.6 % (0.0-8.0); NEUT % 67.2 % (16.0-70.0); PLATELET COUNT 216 TH/MM3 (150-450); RED BLOOD COUNT 5.25 MIL/MM3 (4.00-5.30); WHITE BLOOD COUNT 5.4 TH/MM3 (4.0-11.0)
[2016-06-22] MEDS ORDERED: ACETAMINOPHEN 325 MG TAB PO ONE (03:30)
[2016-06-22] MEDS ORDERED: CARVEDILOL 6.25 MG TAB PO ONE (03:30)
[2016-06-22 03:35] LABS: HEMO FLAGS AUTO DIFF
[2016-06-22 03:41] VITALS: BP 199/87; PULSE 77; RESP 16; O2SAT 100
[2016-06-22 04:18] LABS: PLATELET ESTIMATE SMEAR NORMAL (NORMAL); PLATELET MORPHOLOGY NORMAL (NORMAL); SCAN/DIFF AUTO DIFF CONFIRMED
== END 2016-06-22 04:29 | disposition home or self-care (01) ==
LOC: NEPC 21:35
DX: I10 Essential (primary) hypertension (principal); Z91.14 Patient's other noncompliance with medication regimen; K21.9 Gastro-esophageal reflux disease without esophagitis
CPT/HCPCS: 80053; 81001; 83735; 83880; 84443; 84550; 85025; 99283

== ENCOUNTER 2016-08-06 13:13 | Emergency (ER) | payer BC ==
[~2016-08-06] VITALS: Ht 162.6 cm; Wt 90.0 kg
[~2016-08-06 13:13] MED LIST changes: -BACT800T5 PO; +CELE50CA PO; -CEPH-460 PO
[2016-08-06 13:15] VITALS: BP 198/100; PULSE 87; RESP 16; TEMP 98.2; O2SAT 99
--- NOTE | 2016-08-06 13:25 | PD ---
Physical Exam Time Seen by Provider: 13:25 Narrative 50 y/o female here for evaluation of congestion/cough for 2 days. Denies fever. Vital signs reviewed. Seen at triage desk. Awaiting bed placement. Data Data Last Documented VS Vital Signs Date Time Temp Pulse Resp B/P Pulse Ox O2 Delivery O2 Flow Rate FiO2 08/06/16 13:15 98.2 87 16 198/100 99 MDM Medical Record Reviewed: Yes Supervised Visit with JOAQUINA: Casimiro Mcelroy Aug 06, 2016 13:25
[2016-08-06 13:28] VITALS: BP 170/85
--- NOTE | 2016-08-06 13:41 | PD ---
HPI Chief Complaint: Cold / Flu Symptoms Time Seen by Provider: 13:41 Travel History International Travel<30 days: No Contact w/Intl Traveler<30days: No Traveled to known affect area: No History of Present Illness HPI 42-year-old Afro-[place] female comes in with several day history of upper respiratory congestion, sinus headache, postnasal drip, and now bilateral eye congestion, erythema, and drainage more from the right than the left. Patient denies eye pain or visual changes. Patient denies fever, chills, shortness of breath, wheezing, nausea or vomiting. She has no known drug allergies. Patient is also requesting refills of her blood pressure medications. PFSH Past Medical History Hx Anticoagulant Therapy: No Heart Rhythm Problems: No Cardiac Catheterization: No Cardiovascular Problems: Yes (htn) High Cholesterol: No Chemotherapy: No Congestive Heart Failure: No Cerebrovascular Accident: No Diabetes: No Diminished Hearing: No Gastrointestinal Disorders: Yes (gastric ulcers) GERD: Yes Heparin Induced Thrombocytopen: No Hypertension: Yes Musculoskeletal: Yes (SCIATICA) Respiratory: No Immunizations Current: No Ulcer: Yes Influenza Vaccination: No ?: Not : 3 Para: 3 Tubal Ligation: Yes (1993) Past Surgical History Section: Yes (X 1) Coronary Artery Bypass Graft: No Hysterectomy: No Family History Family Myocardial Infarction: Yes Social History Alcohol Use: Yes Tobacco Use: No Substance Use: No Allergies-Medications (Allergen,Severity, Reaction): Coded Allergies: No Known Allergies (Verified , 03/28/16) Reported Meds & Prescriptions Reported Meds & Active Scripts Active Amlodipine (Amlodipine Besylate) 5 Mg Tab 5 Mg PO DAILY Carvedilol 6.25 Mg Tab 6.25 Mg PO BID Maxitrol Opth Drops (Neomycin/Polymyxin/Dexamethasone) 3.5-10,000-0.1 Mg-Units- % Susp 1 Drop EACH EYE Q4H Flonase Nasal [place] (Fluticasone Nasal [place]) 50 Mcg/Act [place] 100 Mcg EACH NARE DAILY Amoxicillin 875 Mg Tab 875 Mg PO BID Celebrex (Celecoxib) 50 Mg Cap 50 Mg PO BID PRN Coreg (Carvedilol) 6.25 Mg Tab 6.25 Mg PO Q12HR Norvasc (Amlodipine Besylate) 5 Mg Tab 5 Mg PO DAILY Plavix (Clopidogrel Bisulfate) 75 Mg Tab 75 Mg PO DAILY Pantoprazole (Pantoprazole Sodium) 40 Mg Tab 40 Mg PO DAILY Nitrostat SL (Nitroglycerin) 0.4 Mg Subl 0.4 Mg SL Q5M PRN Ferrous Sulfate 325 Mg Tab 325 Mg PO BID@12,17 Review of Systems Except as stated in HPI: all other systems reviewed are Neg General / Constitutional: No: Fever, Chills Eyes: Positive: Drainage, Redness, Tearing, No: Diploplia, Blurred Vision, Photophobia, Foreign Body Sensation, Pain, Blind Spots, Visual changes, Blindness HENT: Positive: Headaches, Sore Throat, Rhinitis, Rhinorrhea, Congestion, No: Nosebleed, Neck Stiffness, Neck Pain, Gingival Bleeding, Dental Difficulties, Ear Discharge, Earache Cardiovascular: No: Chest Pain or Discomfort Respiratory: No: Cough, Shortness of Breath, Wheezing Gastrointestinal: No: Abdominal Pain Genitourinary: No: Dysuria Musculoskeletal: No: Pain Skin: No Rash Neurologic: No: Weakness Psychiatric: No: Depression Endocrine: No: Polydipsia Hematologic/Lymphatic: No: Easy Bruising Physical Exam Narrative GENERAL: Patient appears mild distress. SKIN: Warm and dry. Normal color. Normal turgor. HEAD: Atraumatic. Normocephalic. Patient has sinus tenderness more on the right maxillary sinus and the left EYES: Pupils equal and round. No scleral icterus. Mild right-sided injection and purulent drainage. Left eye appears normal. ENT: No nasal bleeding or discharge. Mucous membranes pink and moist. TMs are clear bilaterally. Posterior pharynx is erythematous with cobblestoning and postnasal drip present. No significant lymphadenopathy. Airway is intact. NECK: Trachea midline. Supple and nontender without significant lymphadenopathy. CARDIOVASCULAR: Regular rate and rhythm. RESPIRATORY: No accessory muscle use. Clear to auscultation. Breath sounds equal bilaterally. GASTROINTESTINAL: Abdomen soft, non-tender, nondistended. Hepatic and splenic margins not palpable. MUSCULOSKELETAL: Extremities without clubbing, cyanosis, or edema. No obvious deformities. NEUROLOGICAL: Awake and alert. No obvious cranial nerve deficits. Motor grossly within normal limits. Five out of 5 muscle strength in the arms and legs. Normal speech. PSYCHIATRIC: Appropriate mood and affect; insight and judgment normal. Data Data Last Documented VS Vital Signs Date Time Temp Pulse Resp B/P Pulse Ox O2 Delivery O2 Flow Rate FiO2 08/06/16 13:34 18 Room Air 08/06/16 13:28 170/85 08/06/16 13:15 98.2 87 99 [facility] Medical Decision Making Medical Screen Exam Complete: Yes Emergency Medical Condition: Yes Differential Diagnosis Upper respiratory infection. Conjunctivitis. Sinusitis. Hypertension. Narrative Course Patient is felt to have sinusitis as well as conjunctivitis. Patient started on amoxicillin 875 twice a day 10 days. Patient is given Flonase nasal spray 2 sprays nostril daily. Patient also given Maxitrol ophthalmic drops 2 drops to both eyes every 3 hours while awake. Patient is given a refill of her carvedilol 6.25 mg daily #30. Patient also given amlodipine 5 mg daily #30. Work note is given. Patient follow with primary care physician or return ED as needed. Diagnosis Primary Impression: Sinusitis Qualified Code: J01.00 - Acute non-recurrent maxillary sinusitis Additional Impression: Conjunctivitis Qualified Code: H10.31 - Acute conjunctivitis of right eye, unspecified acute conjunctivitis type Referrals: [facility] Patient Instructions: Conjunctivitis (ED), General Instructions, Sinusitis (ED) Additional Instructions: Patient is felt to have sinusitis as well as conjunctivitis. Patient started on amoxicillin 875 twice a day 10 days. Patient is given Flonase nasal spray 2 sprays nostril daily. Patient also given Maxitrol ophthalmic drops 2 drops to both eyes every 3 hours while awake. Patient is given a refill of her carvedilol 6.25 mg daily #30. Patient also given amlodipine 5 mg daily #30. Work note is given. Patient follow with primary care physician or return ED as needed. Med/Other Pt SpecificInfo: Prescription(s) given Scripts Amlodipine 5 Mg Tab5 Mg PO DAILY #30 TAB Ref 0 Prov:Antoni Barcenas MD 08/06/16 Carvedilol 6.25 Mg Tab6.25 Mg PO BID #60 TAB Ref 0 Prov:Antoni Barcenas MD 08/06/16 [id number] Opth Drops (Maxitrol Opth Drops)3.5-10,000-0.1 Mg-Units-% Susp1 Drop EACH EYE Q4H #1 BOTTLE Prov:Antoni Barcenas MD 08/06/16 Fluticasone Nasal [place] (Flonase Nasal [place])50 Mcg/Act [id number] Mcg EACH NARE DAILY #1 BOTTLE Prov:Antoni Barcenas MD 08/06/16 Amoxicillin 875 Mg [id number] Mg PO BID #20 TAB Prov:Antoni Barcenas MD 08/06/16 Disposition: 01 DISCHARGE HOME Condition: Stable Brian Underwood Aug 06, 2016 13:41
[2016-08-06] MEDS ORDERED: MAXI5O EACH EYE (13:59)
[2016-08-06] MEDS ORDERED: FLUT1SPR5 EACH NARE (13:59)
[2016-08-06] MEDS ORDERED: AMLO5TAB2 PO (13:59)
[2016-08-06] MEDS ORDERED: CARV6.252 PO (13:59)
[2016-08-06] MEDS ORDERED: AMOX875T PO (13:59)
== END 2016-08-06 14:29 | disposition home or self-care (01) ==
LOC: NEPK 13:13
DX: J32.0 Chronic maxillary sinusitis (principal); H10.31 Unspecified acute conjunctivitis, right eye; I10 Essential (primary) hypertension
CPT/HCPCS: 99284

== ENCOUNTER 2016-08-20 09:02 | Emergency (ER) | payer BC ==
[~2016-08-20] VITALS: Ht 162.6 cm; Wt 102.0 kg
[~2016-08-20 09:02] MED LIST changes: +AMLO5TAB2 PO; +AMOX875T PO; +CARV6.252 PO; +FLUT1SPR5 EACH NARE; +MAXI5O EACH EYE
[2016-08-20 09:05] VITALS: BP 170/102; PULSE 88; RESP 16; TEMP 97.9; O2SAT 100
[2016-08-20 09:30] VITALS: BP 155/75
[2016-08-20] MEDS ORDERED: CODE30TA2 PO (09:31)
[2016-08-20] MEDS ORDERED: NEOM0.1S4 EACH EYE (09:31)
--- NOTE | 2016-08-20 09:33 | PD ---
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, STARTED HAVING WATERY RED EYES LAST NIGHT, TODAY STILL PRESENT PFSH Past Medical History Hx Anticoagulant Therapy: No Heart Rhythm Problems: No Cardiac Catheterization: No Cardiovascular Problems: Yes (htn on meds) High Cholesterol: No Chemotherapy: No Congestive Heart Failure: No Cerebrovascular Accident: No Diabetes: No Diminished Hearing: No Gastrointestinal Disorders: Yes (gastric ulcers) GERD: Yes Heparin Induced Thrombocytopen: No Hypertension: Yes Musculoskeletal: Yes (SCIATICA) Respiratory: No Immunizations Current: No Ulcer: Yes ?: Not LMP: 07/24/16 : 3 Para: 3 Tubal Ligation: Yes (1993) Past Surgical History Section: Yes (X 1) Coronary Artery Bypass Graft: No Hysterectomy: No Social History Alcohol Use: Yes Tobacco Use: No Substance Use: No Allergies-Medications (Allergen,Severity, Reaction): Coded Allergies: No Known Allergies (Verified , 08/20/16) Reported Meds & Prescriptions Reported Meds & Active Scripts Active Amlodipine (Amlodipine Besylate) 5 Mg Tab 5 Mg PO DAILY Carvedilol 6.25 Mg Tab 6.25 Mg PO BID Maxitrol Opth Drops (Neomycin/Polymyxin/Dexamethasone) 3.5-10,000-0.1 Mg-Units- % Susp 1 Drop EACH EYE Q4H Flonase Nasal [place] (Fluticasone Nasal [place]) 50 Mcg/Act [place] 100 Mcg EACH NARE DAILY Amoxicillin 875 Mg Tab 875 Mg PO BID Celebrex (Celecoxib) 50 Mg Cap 50 Mg PO BID PRN Coreg (Carvedilol) 6.25 Mg Tab 6.25 Mg PO Q12HR Norvasc (Amlodipine Besylate) 5 Mg Tab 5 Mg PO DAILY Plavix (Clopidogrel Bisulfate) 75 Mg Tab 75 Mg PO DAILY Pantoprazole (Pantoprazole Sodium) 40 Mg Tab 40 Mg PO DAILY Nitrostat SL (Nitroglycerin) 0.4 Mg Subl 0.4 Mg SL Q5M PRN Ferrous Sulfate 325 Mg Tab 325 Mg PO BID@12,17 Review of Systems Except as stated in HPI: all other systems reviewed are Neg Eyes: Positive: Redness, Tearing Physical Exam Narrative GENERAL: SKIN: Warm and dry. HEAD: Atraumatic. Normocephalic. EYES: Pupils equal and round. No scleral icterus. ERYTHEMATOUS CONJUNCTIVA, CLEAR TEARING, NO PURULENT D/C PRESENT. ENT: No nasal bleeding or discharge. Mucous membranes pink and moist. NECK: Trachea midline. No JVD. CARDIOVASCULAR: Regular rate and rhythm. RESPIRATORY: No accessory muscle use. Clear to auscultation. Breath sounds equal bilaterally. GASTROINTESTINAL: Abdomen soft, non-tender, nondistended. Hepatic and splenic margins not palpable. MUSCULOSKELETAL: Extremities without clubbing, cyanosis, or edema. No obvious deformities. NEUROLOGICAL: Awake and alert. No obvious cranial nerve deficits. Motor grossly within normal limits. Five out of 5 muscle strength in the arms and legs. Normal speech. PSYCHIATRIC: Appropriate mood and affect; insight and judgment normal. Data Data Last Documented VS Vital Signs Date Time Temp Pulse Resp B/P Pulse Ox O2 Delivery O2 Flow Rate FiO2 08/20/16 09:05 97.9 88 16 170/102 100 MDM Medical Decision Making Medical Screen Exam Complete: Yes Emergency Medical Condition: Yes Medical Record Reviewed: Yes Differential Diagnosis CONJUNCTIVITIS Narrative Course BASED ON EXPOSURE LIKELIHOOD HIGH THAT PATIENT HAS VIRAL CONJUNCTIVITIS VS BACTERIAL AT THIS POINT BASED ON EXAM NO CORNEAL ULCER/NO EYE FOREIGN BODY NOTED EITHER. Diagnosis Primary Impression: Conjunctivitis Qualified Code: B30.9 - Acute viral conjunctivitis of both eyes Patient Instructions: Conjunctivitis (ED), General Instructions, Return to Work Instructions (DC) Scripts Codeine-Acetaminophen 30-300 mg Tab1 Tab PO Q4H PRN (PAIN) #20 TAB Ref 0 Prov:Ankur Paulson MD 08/20/16 Yizmodlk-Fzapbdrnr-Vknsmtfamkubw Opth Drops 3.5-10,000-0.1 Mg-Units-% Susp1 Drop EACH EYE Q4H #1 BOTTLE Ref 0 Prov:Ankur Paulson MD 08/20/16 Disposition: 01 DISCHARGE HOME Condition: Stable Ankur Paulson MD Aug 20, 2016 09:33
[2016-08-20] MEDS ORDERED: PROPARACAINE HCL 0.5% OPHT SOLN 15 ML BTL EACH EYE ONE (09:45)
== END 2016-08-20 10:00 | disposition home or self-care (01) ==
LOC: PHED 09:02
DX: B30.9 Viral conjunctivitis, unspecified (principal); I10 Essential (primary) hypertension
CPT/HCPCS: 99284

== ENCOUNTER 2016-11-19 22:44 | Emergency (ER) | payer BC ==
[~2016-11-19] VITALS: Ht 162.6 cm; Wt 101.5 kg
[~2016-11-19 22:44] MED LIST changes: +CODE30TA2 PO; +NEOM0.1S4 EACH EYE
[2016-11-19 23:27] VITALS: BP 229/111; PULSE 69; RESP 16; TEMP 98.1; O2SAT 99
--- NOTE | 2016-11-19 23:48 | PD ---
HPI Chief Complaint: Pain: Acute or Chronic Time Seen by Provider: 23:33 Travel History International Travel<30 days: No Contact w/Intl Traveler<30days: No Traveled to known affect area: No History of Present Illness HPI The patient is a 51-year-old female who complains of generalized myalgias in both arms, both legs, chest and back for 1 day. The patient is a frequent visitor to this emergency department. She states she was taking some leftover hydrocodone but she ran out. He denies any fever, nausea, vomiting or diarrhea. She denies any cough. She has some left lower rib pain which is sharp. She denies any other chest pain. She denies any shortness of breath. She states she ran out of her blood pressure medications and needs a refill. PFSH Past Medical History Hx Anticoagulant Therapy: No Heart Rhythm Problems: No Cardiac Catheterization: No Cardiovascular Problems: Yes (htn on meds) High Cholesterol: No Chemotherapy: No Congestive Heart Failure: No Cerebrovascular Accident: No Diabetes: No Diminished Hearing: No Gastrointestinal Disorders: Yes (gastric ulcers) GERD: Yes Heparin Induced Thrombocytopen: No Hypertension: Yes Musculoskeletal: Yes (SCIATICA) Respiratory: No Immunizations Current: No Ulcer: Yes : 3 Para: 3 Tubal Ligation: Yes (1993) Past Surgical History Section: Yes (X 1) Coronary Artery Bypass Graft: No Hysterectomy: No Social History Alcohol Use: Yes Tobacco Use: No Substance Use: No Allergies-Medications (Allergen,Severity, Reaction): Coded Allergies: No Known Allergies (Verified , 11/19/16) Reported Meds & Prescriptions Reported Meds & Active Scripts Active Maxitrol Opth Drops (Neomycin/Polymyxin/Dexamethasone) 3.5-10,000-0.1 Mg-Units- % Susp 1 Drop EACH EYE Q4H Celebrex (Celecoxib) 50 Mg Cap 50 Mg PO BID PRN Coreg (Carvedilol) 6.25 Mg Tab 6.25 Mg PO Q12HR Norvasc (Amlodipine Besylate) 5 Mg Tab 5 Mg PO DAILY Plavix (Clopidogrel Bisulfate) 75 Mg Tab 75 Mg PO DAILY Pantoprazole (Pantoprazole Sodium) 40 Mg Tab 40 Mg PO DAILY Nitrostat SL (Nitroglycerin) 0.4 Mg Subl 0.4 Mg SL Q5M PRN Review of Systems Except as stated in HPI: all other systems reviewed are Neg Physical Exam Narrative GENERAL: The patient is alert, oriented 3 in minimal apparent distress with her generalized myalgias. Her vital signs show blood pressure 229/111 but otherwise normal. SKIN: Focused skin assessment warm/dry. HEAD: Atraumatic. Normocephalic. EYES: Pupils equal and round. No scleral icterus. No injection or drainage. ENT: No nasal bleeding or discharge. Mucous membranes pink and moist. NECK: Trachea midline. No JVD. CARDIOVASCULAR: Regular rate and rhythm. No murmur appreciated. RESPIRATORY: No accessory muscle use. Clear to auscultation. Breath sounds equal bilaterally. GASTROINTESTINAL: Abdomen soft, non-tender, nondistended. Hepatic and splenic margins not palpable. No guarding or rebound is present. MUSCULOSKELETAL: No obvious deformities. No clubbing. No cyanosis. No edema. I can completely reproduce the patient's pain by pressing on the musculature where the patient perceives her pain. NEUROLOGICAL: Awake and alert. No obvious cranial nerve deficits. Motor grossly within normal limits. Normal speech. PSYCHIATRIC: Appropriate mood and affect; insight and judgment normal. Data Data Last Documented VS Vital Signs Date Time Temp Pulse Resp B/P (MAP) Pulse Ox O2 Delivery O2 Flow Rate FiO2 11/19/16 23:27 98.1 69 16 229/111 (150) 99 Orders Orders Electrocardiogram (11/19/16 23:37) Complete Blood Count With Diff (11/19/16 23:37) Comprehensive Metabolic Panel (11/19/16 23:37) Troponin I (11/19/16 23:37) Chest, Pa & Lat (11/19/16 23:37) Ed Urine Pregnancytest Poc (11/19/16 23:37) Urinalysis - C+S If Indicated (11/19/16 23:37) Ketorolac Inj (Toradol Inj) (11/20/16 01:00) Labs Laboratory Tests Test 11/19/16 23:58 11/20/16 00:16 Urine Color STRAW Urine Turbidity CLEAR Urine pH 7.0 Urine Specific [place] 1.016 Urine Protein NEG mg/dL Urine Glucose (UA) NEG mg/dL Urine Ketones NEG mg/dL Urine Occult Blood NEG Urine Nitrite NEG Urine Bilirubin NEG Urine Leukocyte Esterase NEG Urine RBC 0-2 /hpf Urine WBC 0-2 /hpf Urine Squamous Epithelial Cells 0-5 /hpf Urine Bacteria NONE /hpf Microscopic Urinalysis Comment CULT NOT INDICATED White Blood Count 5.2 TH/MM3 Red Blood Count 5.99 MIL/MM3 Hemoglobin 12.3 GM/DL Hematocrit 39.4 % Mean Corpuscular Volume 65.9 FL Mean Corpuscular Hemoglobin 20.5 PG Mean Corpuscular Hemoglobin Concent 31.1 % Red Cell Distribution Width 16.5 % Platelet Count 323 TH/MM3 Mean Platelet Volume 9.3 FL Neutrophils (%) (Auto) 60.9 % Lymphocytes (%) (Auto) 26.2 % Monocytes (%) (Auto) 8.2 % Eosinophils (%) (Auto) 1.7 % Basophils (%) (Auto) 3.0 % Neutrophils # (Auto) 3.1 TH/MM3 Lymphocytes # (Auto) 1.4 TH/MM3 Monocytes # (Auto) 0.4 TH/MM3 Eosinophils # (Auto) 0.1 TH/MM3 Basophils # (Auto) 0.2 TH/MM3 CBC Comment DIFF FINAL Differential Comment Blood Urea Nitrogen 15 MG/DL Creatinine 0.98 MG/DL Random Glucose 95 MG/DL Total Protein 7.7 GM/DL Albumin 3.5 GM/DL Calcium Level 8.7 MG/DL Alkaline Phosphatase 102 U/L Aspartate Amino Transf (AST/SGOT) 36 U/L Alanine Aminotransferase (ALT/SGPT) 23 U/L Total Bilirubin 0.5 MG/DL Sodium Level 138 MEQ/L Potassium Level 5.2 MEQ/L Chloride Level 105 MEQ/L Carbon Dioxide Level 29.4 MEQ/L Anion Gap 4 MEQ/L Estimat Glomerular Filtration Rate 73 ML/MIN Troponin I LESS THAN 0.02 NG/ML MDM Medical Decision Making Medical Screen Exam Complete: Yes Emergency Medical Condition: Yes Medical Record Reviewed: Yes Interpretation(s) The CBC shows an MCV of 65.9, MCH of 20.5 and MCHC of 31.1 but is otherwise unremarkable. The complete metabolic profile shows potassium of 5.2, anion gap of 4, GFR of 73 but is otherwise normal. The troponin I is normal. The urine is normal. Differential Diagnosis Viral syndrome, urinary tract infection, electrolyte disorder, calcium/ magnesium abnormality Narrative Course The patient has generalized myalgias. This may be from a viral syndrome or unusually heavy work. 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 She will be given Motrin 600 mg 3 times daily and a refill on her blood pressure medications. Diagnosis Primary Impression: Myalgia Additional Impressions: Elevated blood pressure reading with diagnosis of hypertension Medication refill Additional Instructions: Your pressure was elevated here in the emergency department. This may be simply because he did not take all of your blood pressure medications when he ran out. Nevertheless, he need to follow-up with her primary care physician because he may want to change her medications around. Med/Other Pt SpecificInfo: Prescription(s) given Scripts Amlodipine (Amlodipine) 5 Mg Tab 5 MG PO DAILY for Blood Pressure Management, #30 TAB 0 Refills Prov: Julian Hernandez MD 11/20/16 Carvedilol (Carvedilol) 6.25 Mg Tab 6.25 MG PO BID, #60 TAB 0 Refills Prov: Julian Hernandez MD 11/20/16 Ibuprofen (Ibuprofen) 600 Mg Tab 600 MG PO TID, #44 TAB 0 Refills Prov: Julian Hernandez MD 11/20/16 Disposition: 01 DISCHARGE HOME Condition: Stable Julian Hernandez MD Nov 19, 2016 23:48
[2016-11-20 00:03] LABS: BLOOD, URINE NEG (NEG); GLUCOSE,URINE NEG (NEG); KETONE, URINE NEG (NEG); NITRITE,URINE NEG (NEG)
[2016-11-20 00:10] LABS: COMMENT (UR) CULT NOT INDICATED; CULTURE IF INDICATED CULT NOT INDICATED; RBC, URINE 0-2 /hpf (0-3); SQUAMOUS EPITHELIAL CELL URINE 0-5 /hpf (0-5); URINE COLOR STRAW (YELLW/STRAW); WBC, URINE 0-2 /hpf (0-5)
--- NOTE | 2016-11-20 00:17 | RADRPT ---
EXAM DATE/TIME: 11/19/2016 23:56 [facility] COMPARISON: No previous studies available for comparison. INDICATIONS : Chest pain. MEDICAL HISTORY : Hypertension. Cardiovascular disease SURGICAL HISTORY : Tubal ligation. section ENCOUNTER: Initial ACUITY: 2 days PAIN SCORE: 4/10 LOCATION: Bilateral chest FINDINGS: PA and lateral views of the chest demonstrate the lungs to be symmetrically aerated without evidence of mass, infiltrate or effusion. The heart size is prominent but well compensated. Osseous structur es are intact. CONCLUSION: 1. Compensated cardiomegaly. 2. Otherwise negative. Ole Hudson MD on November 20, 2016 at 0:14 Board Certified Radiologist. This report was verified electronically.
[2016-11-20 00:22] LABS: AUTOMATED NEUTROPHIL # 3.1 TH/MM3 (1.8-7.7); BASOPHIL # 0.2 TH/MM3 (0-0.2); EOSINOPHIL # 0.1 TH/MM3 (0-0.4); EOSINOPHIL % 1.7 % (0.0-4.0); HEMATOCRIT 39.4 % (35.0-46.0); LYMPH % 26.2 % (9.0-44.0); LYMPHOCYTE # 1.4 TH/MM3 (1.0-4.8); MEAN CELL VOLUME 65.9 FL (80.0-100.0); MEAN CORPUSCULAR HEMOGLOBIN 20.5 PG (27.0-34.0); MEAN CORPUSCULAR HGB CONC 31.1 % (32.0-36.0); MONO % 8.2 % (0.0-8.0); NEUT % 60.9 % (16.0-70.0); PLATELET COUNT 323 TH/MM3 (150-450); RED BLOOD COUNT 5.99 MIL/MM3 (4.00-5.30); RED CELL DISTRIBUTION WIDTH 16.5 % (11.6-17.2); WHITE BLOOD COUNT 5.2 TH/MM3 (4.0-11.0)
[2016-11-20 00:30] LABS: HEMO FLAGS DIFF FINAL
[2016-11-20 00:32] LABS: CHLORIDE 105 MEQ/L (98-107); SODIUM (NA) 138 MEQ/L (136-145)
[2016-11-20 00:35] LABS: ANION GAP 4 MEQ/L (5-15); BICARBONATE 29.4 MEQ/L (21.0-32.0)
[2016-11-20 00:36] LABS: BLOOD UREA NITROGEN 15 MG/DL (7-18)
[2016-11-20 00:37] LABS: POTASSIUM 5.2 MEQ/L (3.5-5.1)
[2016-11-20 00:38] LABS: ALT (GPT) 23 U/L (10-53); AST (GOT) 36 U/L (15-37)
[2016-11-20 00:39] LABS: GLOMERULAR FILTRATION RATE 73 ML/MIN (>89)
[2016-11-20 00:40] LABS: TOTAL BILIRUBIN ADULT 0.5 MG/DL (0.2-1.0)
[2016-11-20 00:41] LABS: ALKALINE PHOSPHATASE 102 U/L (45-117)
[2016-11-20] MEDS ORDERED: IBUP-232 PO (00:59)
[2016-11-20] MEDS ORDERED: CARV6.252 PO (00:59)
[2016-11-20] MEDS ORDERED: AMLO5TAB2 PO (00:59)
[2016-11-20] MEDS ORDERED: KETOROLAC TROMETHAMINE 60 MG/2 ML (IM) VIAL IVP ONE (01:00)
[2016-11-20 01:21] VITALS: BP 180/84; PULSE 69; RESP 16; O2SAT 99
--- NOTE | 2016-11-20 09:12 | EKG ---
Date Performed: 11/19/2016 Time Performed: 23:02:16 PTAGE: 51 years EKG: Sinus rhythm POSSIBLE LEFT ATRIAL ENLARGEMENT BORDERLINE LEFT AXIS DEVIATION NONSPECIFIC T-WAVE ABNORMALITY BORDE RLINE ECG Compared to prior electrocardiogram, axis rotated leftward. PREVIOUS TRACING : 03/16/2016 10.44 DOCTOR: Colin Gaines Interpretating Date/Time 11/20/2016 09:12:03
== END 2016-11-20 01:43 | disposition home or self-care (01) ==
LOC: PHED 22:44
DX: M79.1 Myalgia (principal); I10 Essential (primary) hypertension; R94.31 Abnormal electrocardiogram [ECG] [EKG]
CPT/HCPCS: 71020; 80053; 81001; 84484; 84703; 85025; 93005; 96374; 99285; J1885

== ENCOUNTER 2017-01-29 10:23 | Emergency (ER) | payer BC ==
[~2017-01-29] VITALS: Ht 162.6 cm; Wt 95.0 kg
[~2017-01-29 10:23] MED LIST changes: -AMOX875T PO; -CODE30TA2 PO; -FERR325T PO; -FLUT1SPR5 EACH NARE; +IBUP-232 PO; -NEOM0.1S4 EACH EYE
[2017-01-29 10:25] VITALS: BP 220/126; PULSE 91; RESP 18; TEMP 98.2; O2SAT 100
[2017-01-29 10:41] VITALS: BP 198/91; PULSE 72; RESP 16; O2SAT 100
[2017-01-29 11:10] VITALS: BP 178/94; PULSE 66; RESP 14; O2SAT 100
--- NOTE | 2017-01-29 11:37 | PD ---
HPI Chief Complaint: Hypertension Time Seen by Provider: 11:13 Travel History International Travel<30 days: No Contact w/Intl Traveler<30days: No Traveled to known affect area: No History of Present Illness HPI Patient is a 51-year-old female presenting to emergency department for evaluation of hypertension and a headache. Patient states she's been out of her blood pressure medicines for several weeks, she was on carvedilol and amlodipine. She developed a frontal headache last night, she states is dull and reports her pain as a 9 out of 10. She states she had chest pain 2-3 days ago that she states was sharp, it resolved on its own, she has not had any nausea, vomiting, shortness of breath, abdominal pain, fever, chills. She reports a family history of heart disease, her mother had a heart attack in her 60s, father had a heart attack in his 70s. PFSH Past Medical History Hx Anticoagulant Therapy: No Heart Rhythm Problems: No Cardiac Catheterization: No High Cholesterol: No Chemotherapy: No Chest Pain: Yes Congestive Heart Failure: No Cerebrovascular Accident: No Diabetes: No Diminished Hearing: No Gastrointestinal Disorders: Yes (gastric ulcers) GERD: Yes Heparin Induced Thrombocytopen: No Hypertension: Yes Musculoskeletal: Yes (SCIATICA) Respiratory: No Immunizations Current: No Ulcer: Yes Tetanus Vaccination: > 5 Years Influenza Vaccination: No ?: Not : 3 Para: 3 Tubal Ligation: Yes (1993) Past Surgical History Section: Yes (one) Coronary Artery Bypass Graft: No Genitourinary Surgery: Yes (btl) Hysterectomy: No Social History Alcohol Use: Yes (ocassionally) Tobacco Use: No Substance Use: No Allergies-Medications (Allergen,Severity, Reaction): Coded Allergies: No Known Allergies (Verified Adverse Reaction, Unknown, 01/29/17) Reported Meds & Prescriptions Reported Meds & Active Scripts Active Coreg (Carvedilol) 6.25 Mg Tab 6.25 Mg PO Q12HR Norvasc (Amlodipine Besylate) 5 Mg Tab 5 Mg PO DAILY Nitrostat SL (Nitroglycerin) 0.4 Mg Subl 0.4 Mg SL Q5M PRN Review of Systems Except as stated in HPI: all other systems reviewed are Neg General / Constitutional: No: Fever, Chills HENT: Positive: Headaches, No: Lightheadedness Cardiovascular: Positive: Chest Pain or Discomfort Respiratory: No: Shortness of Breath Gastrointestinal: No: Nausea, Vomiting, Abdominal Pain Genitourinary: No: Dysuria Musculoskeletal: No: Myalgias Physical Exam Narrative GENERAL: Obese, well-developed, alert female. Resting comfortably in no acute distress. SKIN: Warm and dry. HEAD: Atraumatic. Normocephalic. EYES: Pupils equal and round. No scleral icterus. No injection or drainage. ENT: No nasal bleeding or discharge. Mucous membranes pink and moist. NECK: Trachea midline. No JVD. CARDIOVASCULAR: Regular rate and rhythm. RESPIRATORY: No accessory muscle use. Clear to auscultation. Breath sounds equal bilaterally. GASTROINTESTINAL: Abdomen soft, non-tender, nondistended. Hepatic and splenic margins not palpable. MUSCULOSKELETAL: Extremities without clubbing, cyanosis, or edema. No obvious deformities. NEUROLOGICAL: Awake and alert. No obvious cranial nerve deficits. Motor grossly within normal limits. Five out of 5 muscle strength in the arms and legs. Normal speech. PSYCHIATRIC: Appropriate mood and affect; insight and judgment normal. Data Data Last Documented VS Vital Signs Date Time Temp Pulse Resp B/P (MAP) Pulse Ox O2 Delivery O2 Flow Rate FiO2 01/29/17 13:06 68 14 176/87 (116) 100 Room Air 01/29/17 10:25 98.2 Orders Orders Electrocardiogram (01/29/17 11:32) Ckmb (Isoenzyme) Profile (01/29/17 11:32) Complete Blood Count With Diff (01/29/17 11:32) Comprehensive Metabolic Panel (01/29/17 11:32) Magnesium (Mg) (01/29/17 11:32) Prothrombin Time / Inr (Pt) (01/29/17 11:32) Act Partial Throm Time (Ptt) (01/29/17 11:32) Troponin I (01/29/17 11:32) Chest, Single Ap (01/29/17 11:32) Ecg Monitoring (01/29/17 11:32) Bilateral Bp Monitoring (01/29/17 11:32) Iv Access Insert/Monitor (01/29/17 11:32) Oximetry (01/29/17 11:32) Oxygen Administration (01/29/17 11:32) Morphine Inj (Morphine Inj) (01/29/17 11:45) Sodium Chloride 0.9% Flush (Ns Flush) (01/29/17 11:45) Amlodipine (Norvasc) (01/29/17 11:45) Ct Brain W/O Iv Contrast(Rout) (01/29/17 ) Ondansetron Inj (Zofran Inj) (01/29/17 11:45) CKMB (01/29/17 12:00) CKMB% (01/29/17 12:00) Labs Laboratory Tests Test 01/29/17 12:00 White Blood Count 5.7 TH/MM3 Red Blood Count 6.45 MIL/MM3 Hemoglobin 14.1 GM/DL Hematocrit 43.4 % Mean Corpuscular Volume 67.3 FL Mean Corpuscular Hemoglobin 21.9 PG Mean Corpuscular Hemoglobin Concent 32.5 % Red Cell Distribution Width 18.3 % Platelet Count 218 TH/MM3 Mean Platelet Volume 8.6 FL Neutrophils (%) (Auto) 65.3 % Lymphocytes (%) (Auto) 26.4 % Monocytes (%) (Auto) 6.4 % Eosinophils (%) (Auto) 1.4 % Basophils (%) (Auto) 0.5 % Neutrophils # (Auto) 3.7 TH/MM3 Lymphocytes # (Auto) 1.5 TH/MM3 Monocytes # (Auto) 0.4 TH/MM3 Eosinophils # (Auto) 0.1 TH/MM3 Basophils # (Auto) 0.0 TH/MM3 CBC Comment DIFF FINAL Differential Comment Prothrombin Time 10.2 SEC Prothromb Time International Ratio 0.9 RATIO Activated Partial Thromboplast Time 23.6 SEC Blood Urea Nitrogen 19 MG/DL Creatinine 0.74 MG/DL Random Glucose 76 MG/DL Total Protein 8.1 GM/DL Albumin 3.6 GM/DL Calcium Level 8.7 MG/DL Magnesium Level 2.1 MG/DL Alkaline Phosphatase 112 U/L Aspartate Amino Transf (AST/SGOT) 33 U/L Alanine Aminotransferase (ALT/SGPT) 24 U/L Total Bilirubin 0.5 MG/DL Sodium Level 137 MEQ/L Potassium Level 5.2 MEQ/L Chloride Level 106 MEQ/L Carbon Dioxide Level 23.1 MEQ/L Anion Gap 8 MEQ/L Estimat Glomerular Filtration Rate 101 ML/MIN Total Creatine Kinase 221 U/L Creatine Kinase MB 2.7 NG/ML Creatine Kinase MB % 1.2 % Troponin I LESS THAN 0.02 NG/ML MDM Medical Decision Making Medical Screen Exam Complete: Yes Emergency Medical Condition: Yes Interpretation(s) Last Impressions Chest X-Ray 01/29/17 1132 Signed Impressions: Service Date/Time: Sunday, January 29, 2017 11:48 - CONCLUSION: No acute disease. Adolfo Rouse MD Head CT 01/29/17 0000 Signed Impressions: Service Date/Time: Sunday, January 29, 2017 11:33 - CONCLUSION: Normal examination for a patient of this age. Adolfo Rouse MD Laboratory Tests Test 01/29/17 12:00 White Blood Count 5.7 TH/MM3 Red Blood Count 6.45 MIL/MM3 Hemoglobin 14.1 GM/DL Hematocrit 43.4 % Mean Corpuscular Volume 67.3 FL Mean Corpuscular Hemoglobin 21.9 PG Mean Corpuscular Hemoglobin Concent 32.5 % Red Cell Distribution Width 18.3 % Platelet Count 218 TH/MM3 Mean Platelet Volume 8.6 FL Neutrophils (%) (Auto) 65.3 % Lymphocytes (%) (Auto) 26.4 % Monocytes (%) (Auto) 6.4 % Eosinophils (%) (Auto) 1.4 % Basophils (%) (Auto) 0.5 % Neutrophils # (Auto) 3.7 TH/MM3 Lymphocytes # (Auto) 1.5 TH/MM3 Monocytes # (Auto) 0.4 TH/MM3 Eosinophils # (Auto) 0.1 TH/MM3 Basophils # (Auto) 0.0 TH/MM3 CBC Comment DIFF FINAL Differential Comment Prothrombin Time 10.2 SEC Prothromb Time International Ratio 0.9 RATIO Activated Partial Thromboplast Time 23.6 SEC Blood Urea Nitrogen 19 MG/DL Creatinine 0.74 MG/DL Random Glucose 76 MG/DL Total Protein 8.1 GM/DL Albumin 3.6 GM/DL Calcium Level 8.7 MG/DL Magnesium Level 2.1 MG/DL Alkaline Phosphatase 112 U/L Aspartate Amino Transf (AST/SGOT) 33 U/L Alanine Aminotransferase (ALT/SGPT) 24 U/L Total Bilirubin 0.5 MG/DL Sodium Level 137 MEQ/L Potassium Level 5.2 MEQ/L Chloride Level 106 MEQ/L Carbon Dioxide Level 23.1 MEQ/L Anion Gap 8 MEQ/L Estimat Glomerular Filtration Rate 101 ML/MIN Total Creatine Kinase 221 U/L Creatine Kinase MB 2.7 NG/ML Creatine Kinase MB % 1.2 % Troponin I LESS THAN 0.02 NG/ML Vital Signs Date Time Temp Pulse Resp B/P (MAP) Pulse Ox O2 Delivery O2 Flow Rate FiO2 01/29/17 11:10 66 14 178/94 (122) 100 Room Air 01/29/17 10:41 72 16 198/91 (126) 100 Room Air 01/29/17 10:25 98.2 91 18 220/126 (157) 100 Differential Diagnosis ACS versus hypertension versus hypertensive emergency versus less likely CVA versus other Narrative Course Patient is a 51-year-old female presenting with a headache and elevated blood pressure reading. Patient's a history of hypertension, off of her medications for several weeks. She has no primary provider at this time. Labs and imaging ordered and pending. IV access established, patient placed on fountain pen turner and continuous pulse oximetry. Morphine ordered for pain. CT scan of brain which is read by radiologist shows no acute disease. Chest x-ray which was read by radiologist shows no acute disease CBC with no acute abnormalities Cardiac enzymes are negative 1 set Chemistry with potassium of 5.2, slight hemolysis noted. CK 221 Coags reviewed, no acute abnormalities. Blood pressures normalizing after administration of amlodipine. Discussed findings and patient presentation with my attending physician who reviewed patient's EKG. EKG was compared to prior and there were no changes noted. At this time patient will be discharged home with medication refills. She is advised to follow-up at the [facility] for ongoing healthcare. She is advised to avoid skipping doses and take medications as directed. She is encouraged to follow low-sodium diet. She is encouraged to return to emergency department for any new or worsening symptoms. Patient verbalized understanding of instructions. Patient stable for discharge. Diagnosis Primary Impression: HTN (hypertension) Qualified Codes: I10 - Essential (primary) hypertension Referrals: [facility] 1 week Call for appointment to establish health care Patient Instructions: 2 Gram Sodium Diet (DC), General Instructions, Hypertension (ED) Additional Instructions: Establish care at the [facility] Take medications as directed Following a low sodium diet Increase fluid intake Return to emergency department for any new or worsening symptoms Med/Other Pt SpecificInfo: Prescription(s) given Scripts Carvedilol (Carvedilol) 6.25 Mg Tab 6.25 MG PO BID, #60 TAB 0 Refills Prov: Tisha Vinson 01/29/17 Amlodipine (Amlodipine) 5 Mg Tab 5 MG PO DAILY for Blood Pressure Management, #30 TAB 0 Refills Prov: Tisha Vinson 01/29/17 Disposition: 01 DISCHARGE HOME Condition: Stable Tisha Vinson Jan 29, 2017 11:37
[2017-01-29] MEDS ORDERED: amLODIPine BESYLATE 5 MG TAB PO ONE (11:45)
[2017-01-29] MEDS ORDERED: SODIUM CHLORIDE 0.9% FLUSH 10 ML FLUSH IVF PRN (11:45)
[2017-01-29] MEDS ORDERED: ONDANSETRON HCL 4 MG/2 ML VIAL IV PUSH ONE (11:45)
[2017-01-29] MEDS ORDERED: MORPHINE SULFATE 4 MG/ML INJ IV PUSH ONE (11:45)
--- NOTE | 2017-01-29 11:50 | RADRPT ---
EXAM DATE/TIME: 01/29/2017 11:33 [facility] COMPARISON: No previous studies available for comparison. INDICATIONS : Headaches for two days. RADIATION DOSE: 56.77 CTDIvol (mGy) MEDICAL HISTORY : Cardiovascular disease. Hypertension. Reflux. SURGICAL HISTORY : Tubal ligation. ENCOUNTER: Initial ACUITY: 2 days PAIN SCALE: 7/10 LOCATION: Bilateral cranial posterior to orbits. TECHNIQUE: Multiple contiguous axial images were obtained of the head. Using automated exposure control and adj ustment of the mA and/or kV according to patient size, radiation dose was kept as low as reasonably a chievable to obtain optimal diagnostic quality images. DICOM format image data is available electro nically for review and comparison. FINDINGS: CEREBRUM: The ventricles are normal for age. No evidence of midline shift, mass lesion, hemorrhage or acute in farction. No extra-axial fluid collections are seen. POSTERIOR FOSSA: The cerebellum and brainstem are intact. The 4th ventricle is midline. The cerebellopontine angle i s unremarkable. EXTRACRANIAL: The visualized portion of the orbits is intact. SKULL: The calvaria is intact. No evidence of skull fracture. CONCLUSION: Normal examination for a patient of this age. Adolfo Rouse MD on January 29, 2017 at 11:46 Board Certified Radiologist. This report was verified electronically.
--- NOTE | 2017-01-29 12:13 | RADRPT ---
EXAM DATE/TIME: 01/29/2017 11:48 [facility] COMPARISON: CHEST SINGLE AP, March 15, 2016, 4:04. INDICATIONS : Chest pain started 2 days ago. MEDICAL HISTORY : None. SURGICAL HISTORY : None. ENCOUNTER: Initial ACUITY: 2 days PAIN SCORE: 7/10 LOCATION: Left upper chest FINDINGS: A single view of the chest demonstrates the lungs to be symmetrically aerated without evidence of mas s, infiltrate or effusion. The cardiomediastinal contours are unremarkable. Osseous structures are intact. CONCLUSION: No acute disease. Adolfo Rouse MD on January 29, 2017 at 12:11 Board Certified Radiologist. This report was verified electronically.
[2017-01-29 12:16] VITALS: BP 190/98; PULSE 80; RESP 16; O2SAT 100
[2017-01-29 12:18] LABS: AUTOMATED NEUTROPHIL # 3.7 TH/MM3 (1.8-7.7); BASOPHIL % 0.5 % (0.0-2.0); EOSINOPHIL # 0.1 TH/MM3 (0-0.4); EOSINOPHIL % 1.4 % (0.0-4.0); HEMATOCRIT 43.4 % (35.0-46.0); HEMO FLAGS DIFF FINAL; LYMPH % 26.4 % (9.0-44.0); LYMPHOCYTE # 1.5 TH/MM3 (1.0-4.8); MEAN CELL VOLUME 67.3 FL (80.0-100.0); MEAN CORPUSCULAR HEMOGLOBIN 21.9 PG (27.0-34.0); MEAN CORPUSCULAR HGB CONC 32.5 % (32.0-36.0); MONO % 6.4 % (0.0-8.0); NEUT % 65.3 % (16.0-70.0); PLATELET COUNT 218 TH/MM3 (150-450); RED BLOOD COUNT 6.45 MIL/MM3 (4.00-5.30); RED CELL DISTRIBUTION WIDTH 18.3 % (11.6-17.2); WHITE BLOOD COUNT 5.7 TH/MM3 (4.0-11.0)
[2017-01-29 12:24] LABS: APTT (PATIENT) 23.6 SEC (24.3-30.1); INTERNATIONAL NORMALIZED RATIO 0.9 RATIO; PROTHROMBIN TIME - PATIENT 10.2 SEC (9.8-11.6)
[2017-01-29 12:44] LABS: ALKALINE PHOSPHATASE 112 U/L (45-117); ALT (GPT) 24 U/L (10-53); ANION GAP 8 MEQ/L (5-15); BICARBONATE 23.1 MEQ/L (21.0-32.0); BLOOD UREA NITROGEN 19 MG/DL (7-18); CHLORIDE 106 MEQ/L (98-107); CREATINE KINASE 221 U/L (26-192); GLOMERULAR FILTRATION RATE 101 ML/MIN (>89); SODIUM (NA) 137 MEQ/L (136-145); TOTAL BILIRUBIN ADULT 0.5 MG/DL (0.2-1.0)
[2017-01-29 12:45] LABS: AST (GOT) 33 U/L (15-37); MAGNESIUM 2.1 MG/DL (1.5-2.5); POTASSIUM 5.2 MEQ/L (3.5-5.1)
[2017-01-29 12:57] LABS: CKMB 2.7 NG/ML (0.5-3.6)
[2017-01-29 13:06] VITALS: BP 176/87; PULSE 68; RESP 14; O2SAT 100
[2017-01-29] MEDS ORDERED: CARV6.252 PO (13:14)
[2017-01-29] MEDS ORDERED: AMLO5TAB2 PO (13:14)
--- NOTE | 2017-01-29 14:15 | EKG ---
Date Performed: 01/29/2017 Time Performed: 12:26:08 PTAGE: 51 years EKG: Sinus rhythm POSSIBLE LEFT ATRIAL ENLARGEMENT MARKED LEFT AXIS DEVIATION PATTERN CONSISTENT WITH PULMONARY DISEAS E POSSIBLE LEFT VENTRICULAR HYPERTROPHY ABNORMAL ECG PREVIOUS TRACING : 11/19/2016 23.02 Compared to prior tracing no significant change DOCTOR: Christiano Smith Interpretating Date/Time 01/29/2017 14:13:53
== END 2017-01-29 13:46 | disposition home or self-care (01) ==
LOC: NEPE 10:23
DX: R51 Headache (principal); I10 Essential (primary) hypertension; R07.9 Chest pain, unspecified; R94.31 Abnormal electrocardiogram [ECG] [EKG]; K21.9 Gastro-esophageal reflux disease without esophagitis; Z79.899 Other long term (current) drug therapy
CPT/HCPCS: 70450; 71010; 80053; 82550; 82552; 83735; 84484; 84703; 85025; 85610; 85730; 93005; 96374; 96375; 99285; J2270; J2405

== ENCOUNTER 2017-06-01 23:17 | Emergency (ER) | payer BC ==
[~2017-06-01] VITALS: Ht 162.6 cm; Wt 91.0 kg
[~2017-06-01 23:17] MED LIST changes: -CELE50CA PO; -IBUP-232 PO; -MAXI5O EACH EYE; -PANT40TA3 PO; -PLAV75TA29 PO
[2017-06-02 01:02] VITALS: BP 178/82; PULSE 79; RESP 18; TEMP 97.7; O2SAT 100
[2017-06-02 01:40] LABS: AUTOMATED NEUTROPHIL # 3.6 TH/MM3 (1.8-7.7); BASOPHIL % 0.6 % (0.0-2.0); EOSINOPHIL # 0.1 TH/MM3 (0-0.4); EOSINOPHIL % 1.4 % (0.0-4.0); HEMATOCRIT 39.6 % (35.0-46.0); HEMOGLOBIN 12.8 GM/DL (11.6-15.3); LYMPH % 24.4 % (9.0-44.0); LYMPHOCYTE # 1.3 TH/MM3 (1.0-4.8); MEAN CELL VOLUME 67.7 FL (80.0-100.0); MEAN CORPUSCULAR HEMOGLOBIN 21.8 PG (27.0-34.0); MEAN CORPUSCULAR HGB CONC 32.2 % (32.0-36.0); MEAN PLATELET VOLUME 8.7 FL (7.0-11.0); MONO % 7.8 % (0.0-8.0); MONOCYTE # 0.4 TH/MM3 (0-0.9); NEUT % 65.8 % (16.0-70.0); PLATELET COUNT 239 TH/MM3 (150-450); RED BLOOD COUNT 5.84 MIL/MM3 (4.00-5.30); RED CELL DISTRIBUTION WIDTH 16.6 % (11.6-17.2); WHITE BLOOD COUNT 5.5 TH/MM3 (4.0-11.0)
[2017-06-02 02:04] LABS: TROPONIN I LESS THAN 0.02 NG/ML (0.02-0.05)
[2017-06-02 02:05] VITALS: BP 184/82; PULSE 77; RESP 16; O2SAT 98
[2017-06-02 02:05] LABS: BICARBONATE 28.8 MEQ/L (21.0-32.0); BLOOD UREA NITROGEN 18 MG/DL (7-18); CALCIUM 8.6 MG/DL (8.5-10.1); CHLORIDE 108 MEQ/L (98-107); GLOMERULAR FILTRATION RATE 92 ML/MIN (>89); GLUCOSE,RANDOM 97 MG/DL (74-106); SODIUM (NA) 142 MEQ/L (136-145)
[2017-06-02] MEDS ORDERED: KETOROLAC TROMETHAMINE 60 MG/2 ML (IM) VIAL IM ONE (02:15)
--- NOTE | 2017-06-02 02:19 | RADRPT ---
EXAM DATE/TIME: 06/02/2017 01:56 [facility] COMPARISON: CHEST SINGLE AP, January 29, 2017, 11:48. INDICATIONS : Chest pain. MEDICAL HISTORY : Hypertension. SURGICAL HISTORY : None. ENCOUNTER: Initial ACUITY: 1 day PAIN SCORE: 8/10 LOCATION: Bilateral chest FINDINGS: A single view of the chest demonstrates the lungs to be symmetrically aerated without evidence of mas s, infiltrate or effusion. Cardiomegaly. The cardiomediastinal contours are unremarkable. Osseous s tructures are intact. CONCLUSION: No acute disease. Cardiomegaly Myke Cox MD on June 02, 2017 at 2:17 Board Certified Radiologist. This report was verified electronically.
--- NOTE | 2017-06-02 02:32 | PD ---
HPI Chief Complaint: Chest Pain Time Seen by Provider: 01:54 Travel History International Travel<30 days: No Contact w/Intl Traveler<30days: No Traveled to known affect area: No History of Present Illness HPI Patient a 51-year-old female complaining of hypertension and back pain lower. She is run out of her amlodipine and carvedilol. Her BP is 184/85 she is complaining of lower back pain and she thinks her pain in her back is causing her pressure to be elevated. Taking any Tylenol or Motrin for the pain it is localized to the left lower back. Pain is been going on for last 2 days he denies straining she denies falling she denies trauma PFS Past Medical History Hx Anticoagulant Therapy: No Heart Rhythm Problems: No Cardiac Catheterization: No Cardiovascular Problems: Yes (htn) High Cholesterol: No Chemotherapy: No Chest Pain: Yes Congestive Heart Failure: No Cerebrovascular Accident: No Diabetes: No Diminished Hearing: No Gastrointestinal Disorders: Yes (gastric ulcers) GERD: Yes Heparin Induced Thrombocytopen: No Hypertension: Yes Musculoskeletal: Yes (SCIATICA) Respiratory: No Immunizations Current: No Ulcer: Yes Tetanus Vaccination: Unknown ?: Not LMP: menapause : 3 Para: 3 Tubal Ligation: Yes (1993) Past Surgical History Section: Yes (one) Coronary Artery Bypass Graft: No Genitourinary Surgery: Yes (btl) Hysterectomy: No Family History Family Myocardial Infarction: Yes Social History Alcohol Use: Yes (ocassionally) Tobacco Use: No Substance Use: No Allergies-Medications (Allergen,Severity, Reaction): Coded Allergies: No Known Allergies (Verified Adverse Reaction, Unknown, 06/02/17) Reported Meds & Prescriptions Reported Meds & Active Scripts Active Norvasc (Amlodipine Besylate) 2.5 Mg Tab 2.5 Mg PO DAILY Coreg (Carvedilol) 6.25 Mg Tab 6.25 Mg PO Q12HR Norvasc (Amlodipine Besylate) 5 Mg Tab 5 Mg PO DAILY Nitrostat SL (Nitroglycerin) 0.4 Mg Subl 0.4 Mg SL Q5M PRN Review of Systems Except as stated in HPI: all other systems reviewed are Neg Cardiovascular: Positive: Other (hypertension) Musculoskeletal: Positive: Other (back pain) Physical Exam Narrative GENERAL: Patient is nontoxic-appearing in no apparent distress lying in the bed with her daughter at her feet SKIN: Warm and dry. HEAD: Atraumatic. Normocephalic. EYES: Pupils equal and round. No scleral icterus. No injection or drainage. ENT: No nasal bleeding or discharge. Mucous membranes pink and moist. NECK: Trachea midline. No JVD. CARDIOVASCULAR: Regular rate and rhythm. On monitor there is hypertension 184/ 85 RESPIRATORY: No accessory muscle use. Clear to auscultation. Breath sounds equal bilaterally. GASTROINTESTINAL: Abdomen soft, non-tender, nondistended. Hepatic and splenic margins not palpable. MUSCULOSKELETAL: Extremities without clubbing, cyanosis, or edema. No obvious deformities Back patient has pain in her left lower back area on the entire left flank to the lower gluteal area. No rashes no bruising no hematoma no spinous process tenderness NEUROLOGICAL: Awake and alert. No obvious cranial nerve deficits. Motor grossly within normal limits. Five out of 5 muscle strength in the arms and legs. Normal speech. PSYCHIATRIC: Appropriate mood and affect; insight and judgment normal. Data Data Last Documented VS Vital Signs Date Time Temp Pulse Resp B/P (MAP) Pulse Ox O2 Delivery O2 Flow Rate FiO2 06/02/17 05:22 06/02/17 05:00 74 16 98 Room Air 06/02/17 01:02 97.7 Orders Orders Electrocardiogram (06/02/17 01:07) Complete Blood Count With Diff (06/02/17 01:07) Basic Metabolic Panel (Bmp) (06/02/17 01:07) Ckmb (Isoenzyme) Profile (06/02/17 01:07) Troponin I (06/02/17 01:07) Chest, Single Ap (06/02/17 01:07) Iv Access Insert/Monitor (06/02/17 01:07) Ecg Monitoring (06/02/17 01:07) Oxygen Administration (06/02/17 01:07) Oximetry (06/02/17 01:07) CKMB (06/02/17 01:20) CKMB% (06/02/17 01:20) Ketorolac Inj (Toradol Inj) (06/02/17 02:15) Urinalysis - C+S If Indicated (06/02/17 02:16) Amlodipine (Norvasc) (06/02/17 04:15) Ed Discharge Order (3/29/18 05:22) Labs Laboratory Tests Test 06/02/17 01:20 06/02/17 02:20 White Blood Count 5.5 TH/MM3 Red Blood Count 5.84 MIL/MM3 Hemoglobin 12.8 GM/DL Hematocrit 39.6 % Mean Corpuscular Volume 67.7 FL Mean Corpuscular Hemoglobin 21.8 PG Mean Corpuscular Hemoglobin Concent 32.2 % Red Cell Distribution Width 16.6 % Platelet Count 239 TH/MM3 Mean Platelet Volume 8.7 FL Neutrophils (%) (Auto) 65.8 % Lymphocytes (%) (Auto) 24.4 % Monocytes (%) (Auto) 7.8 % Eosinophils (%) (Auto) 1.4 % Basophils (%) (Auto) 0.6 % Neutrophils # (Auto) 3.6 TH/MM3 Lymphocytes # (Auto) 1.3 TH/MM3 Monocytes # (Auto) 0.4 TH/MM3 Eosinophils # (Auto) 0.1 TH/MM3 Basophils # (Auto) 0.0 TH/MM3 CBC Comment DIFF FINAL Differential Comment Blood Urea Nitrogen 18 MG/DL Creatinine 0.80 MG/DL Random Glucose 97 MG/DL Calcium Level 8.6 MG/DL Sodium Level 142 MEQ/L Potassium Level 3.9 MEQ/L Chloride Level 108 MEQ/L Carbon Dioxide Level 28.8 MEQ/L Anion Gap 5 MEQ/L Estimat Glomerular Filtration Rate 92 ML/MIN Total Creatine Kinase 143 U/L Creatine Kinase MB 2.7 NG/ML Troponin I LESS THAN 0.02 NG/ML Urine Color YELLOW Urine Turbidity HAZY Urine pH 6.5 Urine Specific [place] 1.025 Urine Protein TRACE mg/dL Urine Glucose (UA) NEG mg/dL Urine Ketones NEG mg/dL Urine Occult Blood NEG Urine Nitrite NEG Urine Bilirubin NEG Urine Urobilinogen 2.0 MG/DL Urine Leukocyte Esterase NEG Urine RBC LESS THAN 1 /hpf Urine WBC LESS THAN 1 /hpf Urine Squamous Epithelial Cells 9 /hpf Urine Mucus FEW /lpf Microscopic Urinalysis Comment CULT NOT INDICATED MDM Medical Decision Making Medical Screen Exam Complete: Yes Emergency Medical Condition: Yes Differential Diagnosis Differential diagnosis includes renal colic versus pyelonephritis versus back pain versus muscle strain versus contusion all the above causing pain that is increasing her BP essential hypertension Narrative Course Patient is given Toradol IM she feels much better pain-free however her pressure remains elevated at 195/90 I add 5 mg of amlodipine to her regimen which includes amlodipine plus carvedilol and patient is going to be discharged follow-up as an outpatient diagnosis is muscle strain Diagnosis Primary Impression: HTN (hypertension) Qualified Codes: I10 - Essential (primary) hypertension Additional Impressions: Back pain Muscle strain Patient Instructions: Chronic Hypertension (ED), General Instructions Scripts Amlodipine (Norvasc) 2.5 Mg Tab 2.5 MG PO DAILY for Blood Pressure Management, #20 TAB 0 Refills Prov: Rjaesh Alberto MD 06/02/17 Rajesh Alberto MD Jun 02, 2017 02:32
[2017-06-02 02:45] LABS: BILIRUBIN, URINE NEG (NEG); BLOOD, URINE NEG (NEG); GLUCOSE,URINE NEG (NEG); KETONE, URINE NEG (NEG); MUCUS URINE FEW /lpf (OCC); NITRITE,URINE NEG (NEG); PH, URINE 6.5 (5.0-8.5); SQUAMOUS EPITHELIAL CELL URINE 9 /hpf (0-5); URINE COLOR YELLOW (YELLW/STRAW); URINE LEUKOCYTE ESTERASE NEG (NEG)
[2017-06-02 04:11] VITALS: BP 196/90; PULSE 92; RESP 16; O2SAT 99
[2017-06-02] MEDS ORDERED: amLODIPine BESYLATE 5 MG TAB PO ONE (04:15)
[2017-06-02 05:00] VITALS: BP 191/82; PULSE 74; RESP 16; O2SAT 98
[2017-06-02] MEDS ORDERED: NORV2.5T PO (05:24)
--- NOTE | 2017-06-02 14:42 | EKG ---
Date Performed: 06/02/2017 Time Performed: 01:15:17 PTAGE: 51 years EKG: Sinus rhythm Left atrial abnormality Left ventricular hypertrophy with repolarization abnormality Change in appea kaz in precordial leads some of which could be due to lead placement since the limb leads look chauncey lar. Clinical correlation needed. ABNORMAL ECG PREVIOUS TRACING : 01/29/2017 12.26 DOCTOR: Geovani Monique Interpretating Date/Time 06/02/2017 14:41:50
== END 2017-06-02 05:42 | disposition home or self-care (01) ==
LOC: NEPE 23:17
DX: I10 Essential (primary) hypertension (principal); M54.5 Low back pain
CPT/HCPCS: 71045; 80048; 81001; 82550; 82552; 84484; 85025; 93005; 96372; 99285; J1885

== ENCOUNTER 2017-07-22 20:20 | Emergency (ER) | END 2017-07-23 01:45 | disposition home or self-care (01) | DX: I10 Essential (primary) hypertension (principal); R07.89 Other chest pain | CPT/HCPCS: 71046; 80053; 83690; 84484; 85025; 93005; 96374; 96375; 99285; J1885 ==